=== PATIENT | female | born 1970 | race American Indian/Alaskan Native ===

== ENCOUNTER 2016-08-28 23:03 | Emergency (ER) | payer MEDICAID ==
[2016-08-29 03:46] VITALS: BP 135/84
--- NOTE | 2016-08-29 03:53 | Emergency Department Report ---
Minor Respiratory - HPI Chief Complaint: Upper Respiratory Infection Stated Complaint: LUBA/HEADACHE/COUGH/WHEEZING/ Time Seen by Provider: 08/29/16 03:46 Duration: Today Pain Location: Chest Severity: mild Minor Respiratory: Yes Cough, Yes Shortness of Breath, No Sore Throat, No Fever ED Review of Systems ROS: Stated complaint: LUBA/HEADACHE/COUGH/WHEEZING/ Other details as noted in HPI Constitutional: denies: chills, fever Respiratory: cough, shortness of breath, wheezing Cardiovascular: denies: chest pain, palpitations Gastrointestinal: denies: abdominal pain, nausea ED Past Medical Hx - Past Medical History Previous Medical History?: No - Surgical History Past Surgical History?: Yes Additional Surgical History: D&C - Social History Smoking Status: Current Every Day Smoker Substance Use Type: Alcohol, Non Opiate Pain, Prescribed - Medications Home Medications: Home Medications Medication Instructions Recorded Confirmed Last Taken Type ALBUTEROL Inhaler [Proair] 2 puff IH QID PRN #1 inhalation 01/24/16 Unknown Rx Benzonatate [Tessalon Perles] 100 mg PO Q8HR #30 capsule 01/24/16 Unknown Rx Ciprofloxacin HCl [Ciprofloxacin 500 mg PO Q12H #14 tab 01/24/16 Unknown Rx TAB] Ibuprofen [Motrin 800 MG tab] 800 mg PO Q8HR PRN #20 tablet 01/24/16 Unknown Rx HYDROcodone/APAP 5-325 [[place] 1 - 2 each PO 2XWHS PRN #15 tablet 08/29/16 Unknown Rx 5-325 mg TAB] Minor Respiratory Exam - Exam General: Vital signs noted. No distress. Alert and acting appropriately. HEENT: Yes Moist Mucous Membranes, No Pharyngeal Erythema, No Pharyngeal Exudates, No Rhinorrhea, No Conjuctival Injection, No Frontal Tenderness, No Maxillary Tenderness Neck: Yes Supple, No Adenopathy Lungs: Yes Good Air Exchange, Yes Wheezes, No Ronchi, No Stridor Heart: Yes Regular, No Murmur Abdomen: No Tenderness, No Peritoneal Signs Skin: No Rash, No Edema Neurologic: Alert and oriented, no deficits. Musculoskeletal: Unremarkable. ED Course Vital Signs 08/28/16 08/29/16 08/29/16 23:06 03:45 03:46 Temperature 98.4 F 98.3 F Pulse Rate 102 H 95 H Respiratory 20 16 Rate Blood Pressure 132/94 Blood Pressure 134/94 135/84 [Right] O2 Sat by Pulse 99 97 97 Oximetry - Reevaluation(s) Reevaluation #1: 08/29/16 06:03 Patient demonstrates some mild bronchial sounds on her respiratory examination. She is moving air well however. Her O2 saturations appropriate her heart rate is appropriate. She is afebrile here. I suspect bronchitis. Patient given an inhaler here for her wheezes. I suspect this will help with her cough as well. She is otherwise well here. She does have some pain in the right parascapular region. I suspect this is due to hard coughing. I do not suspect fracture. Safe for home Critical care attestation.: If time is entered above; I have spent that time in minutes in the direct care of this critically ill patient, excluding procedure time. ED Disposition Clinical Impression: Bronchitis Thoracic back sprain Qualifiers: Encounter type: initial encounter Qualified Code(s): S23.9XXA - Sprain of unspecified parts of thorax, initial encounter Disposition: DISCHARGED TO HOME OR SELFCARE Is pt being admited?: No Does the pt Need Aspirin: No Condition: Stable Instructions: Acute Bronchitis (ED) Additional Instructions: Use the albuterol inhaler every 4-6 hours as needed for cough and difficulty in breathing. Take hydrocodone as needed for pains. Prescriptions: HYDROcodone/APAP 5-325 [[place] 5-325 mg TAB] 1 - 2 each PO 2XWHS PRN #15 tablet PRN Reason: Pain Referrals: PRIMARY CARE, [Primary Care Provider] - 3-5 Days Forms: Work/School Release Form(ED) Time of Disposition: 03:51
[2016-08-29] MEDS ORDERED: PROAIR IH ONE (03:54)
== END 2016-08-29 04:25 | disposition home or self-care (01) ==
LOC: ED 23:03
DX: S23.9XXA Sprain of unspecified parts of thorax, initial encounter (principal); J40 Bronchitis, not specified as acute or chronic; F17.200 Nicotine dependence, unspecified, uncomplicated; X58.XXXA Exposure to other specified factors, initial encounter; Y93.9 Activity, unspecified; Y92.9 Unspecified place or not applicable; Y99.9 Unspecified external cause status
CPT/HCPCS: 99282

== ENCOUNTER 2017-01-22 18:21 | Emergency (ER) | payer BC, MEDICAID ==
[2017-01-22 19:53] LABS: Basophils % (Auto) 0.5 % (0.0-1.8); Hematocrit 39.2 % (30.3-42.9); Hemoglobin 13.3 gm/dl (10.1-14.3); Mean Corpuscular HGB Conc 34 % (30-34); Mean Corpuscular Hemoglobin 30 pg (28-32); Mean Corpuscular Volume 87 fl (79-97); Platelet Count 214 K/mm3 (140-440); Red Cell Distribution Width 13.7 % (13.2-15.2); White Blood Count 7.5 K/mm3 (4.5-11.0)
[2017-01-22 20:05] LABS: Anion Gap 19 mmol/L; BUN/Creatinine Ratio 11.25; Blood Urea Nitrogen 9 mg/dL (7-17); Calcium 9.1 mg/dL (8.4-10.2); Carbon Dioxide 25 mmol/L (22-30); Chloride 97.1 mmol/L (98-107); Glucose 93 mg/dL (65-100); Potassium 3.6 mmol/L (3.6-5.0); Sodium 137 mmol/L (137-145)
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
[2017-01-23] MEDS ORDERED: ATIVAN IM PRN (03:31)
[2017-01-23] MEDS ORDERED: HALDOL IM PRN (03:31)
[2017-01-23] MEDS ORDERED: ZOFRAN ODT PO PRN (04:40)
[2017-01-23] MEDS ORDERED: HALDOL IM ONE (04:40)
--- NOTE | 2017-01-23 05:04 | Cat Scan Report ---
FINAL REPORT EXAM: CT HEAD/BRAIN W/O CONTRAST. HISTORY: Hallucinations. TECHNIQUE: Unenhanced axial CT images of the brain were obtained. No prior studies are available for comparison. FINDINGS: There is moderate streak artifact degrading images at the skullbase. The cortical sulci and ventricles are within normal limits for patient's age. Incidental note is made of dense dural calcifications along the entire falx. There is no extra-axial fluid collection, mass, mass effect, midline shift, hydrocephalus, or acute intracranial hemorrhage. There is minimal sinus mucosal thickening along the anterior aspects of the bilateral sphenoid sinuses, and within the adjacent posterior left ethmoid air cells. The remainder of the visualized paranasal sinuses and mastoid air cells are clear. There is no skull fracture or other osseous abnormality. IMPRESSION: 1. No acute intracranial abnormality. 2. Minimal bilateral sphenoid and left posterior ethmoid sinus mucosal thickening.
[2017-01-23 05:39] LABS: Urine Drugs of Abuse Note Disclamer
[2017-01-23 05:53] LABS: Bacteria,Urine 1+ /HPF (Negative); Bilirubin,Urine NEG (Negative); Blood,Urine NEG (Negative); Ketones,Urine NEG (Negative); Leukocyte Esterase,Urine SM (Negative); Mucus,Urine 2+ /HPF; Nitrite,Urine NEG (Negative)
[2017-01-23 05:58] LABS: Lithium 1.3 mmol/L (0.0-1.2)
[2017-01-23 06:02] LABS: Valproate < 2.8 ug/mL (50-100)
[2017-01-23] MEDS ORDERED: NACL 0.9% 1000 ML 2,000 ML IV ONE (06:09)
[2017-01-23] MEDS: THERAGRAN Tab PO SCH (11:00)
[2017-01-23] MEDS: PAXIL PO SCH (11:00)
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
[2017-01-23 12:33] LABS: Urine Drugs of Abuse Note Disclamer
[2017-01-24] MEDS: THERAGRAN Tab PO SCH (11:27)
[2017-01-24] MEDS: PAXIL PO SCH (11:27)
[2017-01-25] MEDS: PAXIL PO SCH (11:10)
[2017-01-25] MEDS: THERAGRAN Tab PO SCH (11:10)
--- NOTE | 2017-01-25 12:23 | Progress Note ---
Subjective - Reason for Consult Consult date: 01/25/17 Reason for consult: Psychiatry Follow-up - Chief Complaint Chief complaint: This is a 46-year-old female presenting to ER with anger, anxiety, and bothersome thoughts. Today patient is calm and cooperative during assessment. She stated that she experience "Demons" attacking her when she does not take her medications. She denies the attacks of demons at this time. She admit to taking her boyfriend's lithium. She stated, "I took the lithium for anxiety." On admission her lithium level was 1.3 with a repeat level at 0.1. She cannot tell me how she got amphetamines in her system. She stated that she feels "a lot " better since she be taking her medication per this admission. She denies SI/HI 's, AVH's, and depression. She denies any side effects from her medications. Mental Status Exam - Vital signs Last Vital Signs Temp 98.8 F 01/24/17 21:52 Pulse 69 01/24/17 21:52 Resp 18 01/24/17 21:52 BP 118/67 01/24/17 21:52 Pulse Ox 96 01/24/17 21:52 - Exam Narrative exam: MSE: Appearance: cooperative, calm Behavior: regular eye contact Speech: regular rate and tone Mood: "better" Affect: congruent to mood Thought Process: linear Thought Content: denies SI/HI's and AVH's Motor Activity: ambulatory Cognition: A/Ox 3 Insight: fair Judgment: fair Assessment and Plan Impression: Historical Dx; Bipolar/Depression. Today patient is calm and cooperative during assessment. Denies any perceptual disturbances. Recommendation/Plan: Evaluate 1013 in 24 hours to determine proper dispo. Continue Zyprexa 10 mg PO HS for psychotic symptoms/mood and Paxil 20 mg PO daily for depression. Discussed possible suicidality/medication induced levi with patient reference Paxil.
[2017-01-26] MEDS: PAXIL PO SCH (10:28)
[2017-01-26] MEDS: THERAGRAN Tab PO SCH (10:28)
--- NOTE | 2017-01-26 11:30 | Progress Note ---
Subjective - Reason for Consult Consult date: 01/26/17 Reason for consult: Psychiatry Follow-up - Chief Complaint Chief complaint: "Will I be leaving today" This is a 46-year-old female presenting to ER with anger, anxiety, and bothersome thoughts. Today patient is calm and cooperative during assessment. She stated that the "demons" attacking her has ceased and look forward to returning home. She also stated that she look forward to returning to work. She stated that she live with her 2 grown sons (Mauri and Basilio). Patient has been pleasant since admission. Per the staff, no behavioral disturbances noted. She denies SI/HI's, AVH"s, and depression symptoms. Mental Status Exam - Vital signs Last Vital Signs Temp 98.9 F 01/26/17 08:10 Pulse 64 01/26/17 08:10 Resp 16 01/26/17 08:10 BP 131/82 01/26/17 08:10 Pulse Ox 99 01/26/17 08:10 - Exam Narrative exam: MSE: Appearance: cooperative, calm Behavior: regular eye contact Speech: regular rate and tone Mood: "okay" Affect: congruent to mood Thought Process: linear Thought Content: denies SI/HI's and AVH's Motor Activity: ambulatory Cognition: A/Ox 3 Insight: fair Judgment: fair Assessment and Plan Impression: Historical Dx; Bipolar/Depression. Today patient is calm and cooperative during assessment. Patient is no threat to self or others. Recommendation/Plan: Rescind 1013. Continue Zyprexa 10 mg PO HS for mood and Paxil 20 mg PO daily for depression. Discussed possible suicidality/medication induced levi with patient reference Paxil. Patient can follow-up with her psychiatrist Dr Kumar.
--- NOTE | 2017-01-26 12:39 | Event Note ---
Date: 01/26/17 The patient is seen and examined. Her hallucinations have resolved. She is not homicidal or suicidal. The patient is alert and oriented 3. She reports she is not taking lithium. She has a GCS of 15, with an NIH score of 0. She will be given a 10 day supply of Zyprexa and Paxil, and instructed to follow up with outpatient psychiatry to have her medications further refill. Her 1013 has been discontinued by psychiatry. Vital Signs 01/22/17 01/23/17 01/23/17 18:43 00:11 04:06 Temperature 98.5 F 98.6 F Pulse Rate 93 H 87 87 Respiratory 18 18 16 Rate Blood Pressure 136/94 155/107 Blood Pressure [Left] Blood Pressure 139/97 [Right] O2 Sat by Pulse 97 100 98 Oximetry 01/23/17 01/23/17 01/23/17 10:00 14:06 16:00 Temperature Pulse Rate 88 77 Respiratory 16 16 16 Rate Blood Pressure Blood Pressure [Left] Blood Pressure 138/78 130/62 [Right] O2 Sat by Pulse 99 99 99 Oximetry 01/23/17 01/24/17 01/24/17 20:23 08:45 18:58 Temperature 98.0 F 98.2 F Pulse Rate 80 78 Respiratory 16 20 20 Rate Blood Pressure Blood Pressure [Left] Blood Pressure 128/60 120/64 [Right] O2 Sat by Pulse 99 100 100 Oximetry 01/24/17 01/25/17 01/26/17 21:52 16:30 01:14 Temperature 98.8 F 98.7 F 98.9 F Pulse Rate 69 72 70 Respiratory 18 20 16 Rate Blood Pressure Blood Pressure [Left] Blood Pressure 118/67 122/86 110/73 [Right] O2 Sat by Pulse 96 100 93 Oximetry 01/26/17 08:10 Temperature 98.9 F Pulse Rate 64 Respiratory 16 Rate Blood Pressure Blood Pressure 131/82 [Left] Blood Pressure [Right] O2 Sat by Pulse 99 Oximetry Vital Signs 01/22/17 01/23/17 01/23/17 18:43 00:11 04:06 Temperature 98.5 F 98.6 F Pulse Rate 93 H 87 87 Respiratory 18 18 16 Rate Blood Pressure 136/94 155/107 Blood Pressure [Left] Blood Pressure 139/97 [Right] O2 Sat by Pulse 97 100 98 Oximetry 0701/23/17 01/23/17 10:00 14:06 16:00 Temperature Pulse Rate 88 77 Respiratory 16 16 16 Rate Blood Pressure Blood Pressure [Left] Blood Pressure 138/78 130/62 [Right] O2 Sat by Pulse 99 99 99 Oximetry 01/23/17 01/24/17 01/24/17 20:23 08:45 18:58 Temperature 98.0 F 98.2 F Pulse Rate 80 78 Respiratory 16 20 20 Rate Blood Pressure Blood Pressure [Left] Blood Pressure 128/60 120/64 [Right] O2 Sat by Pulse 99 100 100 Oximetry 01/24/17 01/25/17 01/26/17 21:52 16:30 01:14 Temperature 98.8 F 98.7 F 98.9 F Pulse Rate 69 72 70 Respiratory 18 20 16 Rate Blood Pressure Blood Pressure [Left] Blood Pressure 118/67 122/86 110/73 [Right] O2 Sat by Pulse 96 100 93 Oximetry 01/26/17 08:10 Temperature 98.9 F Pulse Rate 64 Respiratory 16 Rate Blood Pressure Blood Pressure 131/82 [Left] Blood Pressure [Right] O2 Sat by Pulse 99 Oximetry Lab Results 01/22/17 01/22/17 01/22/17 Range/Units 19:30 19:30 19:30 WBC (4.5-11.0) K/mm3 RBC (3.65-5.03) M/mm3 Hgb (10.1-14.3) gm/dl Hct (30.3-42.9) % MCV (79-97) fl MCH (28-32) pg MCHC (30-34) % RDW (13.2-15.2) % Plt Count (140-440) K/mm3 Lymph % (Auto) (13.4-35.0) % [place] % (Auto) (0.0-7.3) % Eos % (Auto) (0.0-4.3) % Baso % (Auto) (0.0-1.8) % Lymph # (1.2-5.4) K/mm3 [place] # (0.0-0.8) K/mm3 Eos # (0.0-0.4) K/mm3 Baso # (0.0-0.1) K/mm3 Seg Neutrophils % (40.0-70.0) % Seg Neutrophils # (1.8-7.7) K/mm3 Sodium 137 (137-145) mmol/L Potassium 3.6 (3.6-5.0) mmol/L Chloride 97.1 L (98-107) mmol/L Carbon Dioxide 25 (22-30) mmol/L Anion Gap 19 mmol/L BUN 9 (7-17) mg/dL Creatinine 0.8 (0.7-1.2) mg/dL Estimated GFR > 60 ml/min BUN/Creatinine Ratio 11.25 % Glucose 93 (65-100) mg/dL Calcium 9.1 (8.4-10.2) mg/dL Total Creatine Kinase (30-135) units/L TSH (0.270-4.200) mlU/mL Free T4 (0.76-1.46) ng/dL HCG, Qual Negative (Negative) Urine Color (Yellow) Urine Turbidity (Clear) Urine pH (5.0-7.0) Ur Specific [place] (1.003-1.030) Urine Protein (Negative) mg/dL Urine Glucose (UA) (Negative) mg/dL Urine Ketones (Negative) mg/dL Urine Blood (Negative) Urine Nitrite (Negative) Urine Bilirubin (Negative) Urine Urobilinogen (<2.0) mg/dL Ur Leukocyte Esterase (Negative) Urine WBC (Auto) (0.0-6.0) /HPF Urine RBC (Auto) (0.0-6.0) /HPF U Epithel Cells (Auto) (0-13.0) /HPF Urine Bacteria (Auto) (Negative) /HPF Urine Mucus /HPF Salicylates (2.8-20.0) mg/dL Urine Opiates Screen Urine Methadone Screen Acetaminophen (10.0-30.0) ug/mL Ur Barbiturates Screen Valproic Acid (50-100) ug/mL Ur Phencyclidine Scrn Ur Amphetamines Screen U Benzodiazepines Scrn [place] (0.0-1.2) mmol/L Urine Cocaine Screen U Marijuana (THC) Screen Drugs of Abuse Note Plasma/Serum Alcohol 0.10 H (0-0.07) gm% 01/22/17 01/23/17 01/23/17 Range/Units 19:30 01:35 01:35 WBC 7.5 (4.5-11.0) K/mm3 RBC 4.50 (3.65-5.03) M/mm3 Hgb 13.3 (10.1-14.3) gm/dl Hct 39.2 (30.3-42.9) % MCV 87 (79-97) fl MCH 30 (28-32) pg MCHC 34 (30-34) % RDW 13.7 (13.2-15.2) % Plt Count 214 (140-440) K/mm3 Lymph % (Auto) 33.1 (13.4-35.0) % [place] % (Auto) 5.3 (0.0-7.3) % Eos % (Auto) 0.0 (0.0-4.3) % Baso % (Auto) 0.5 (0.0-1.8) % Lymph # 2.5 (1.2-5.4) K/mm3 [place] # 0.4 (0.0-0.8) K/mm3 Eos # 0.0 (0.0-0.4) K/mm3 Baso # 0.0 (0.0-0.1) K/mm3 Seg Neutrophils % 61.1 (40.0-70.0) % Seg Neutrophils # 4.6 (1.8-7.7) K/mm3 Sodium (137-145) mmol/L Potassium (3.6-5.0) mmol/L Chloride (98-107) mmol/L Carbon Dioxide (22-30) mmol/L Anion Gap mmol/L BUN (7-17) mg/dL Creatinine (0.7-1.2) mg/dL Estimated GFR ml/min BUN/Creatinine Ratio % Glucose (65-100) mg/dL Calcium (8.4-10.2) mg/dL Total Creatine Kinase 790 H (30-135) units/L TSH (0.270-4.200) mlU/mL Free T4 (0.76-1.46) ng/dL HCG, Qual (Negative) Urine Color (Yellow) Urine Turbidity (Clear) Urine pH (5.0-7.0) Ur Specific [place] (1.003-1.030) Urine Protein (Negative) mg/dL Urine Glucose (UA) (Negative) mg/dL Urine Ketones (Negative) mg/dL Urine Blood (Negative) Urine Nitrite (Negative) Urine Bilirubin (Negative) Urine Urobilinogen (<2.0) mg/dL Ur Leukocyte Esterase (Negative) Urine WBC (Auto) (0.0-6.0) /HPF Urine RBC (Auto) (0.0-6.0) /HPF U Epithel Cells (Auto) (0-13.0) /HPF Urine Bacteria (Auto) (Negative) /HPF Urine Mucus /HPF Salicylates < 0.3 L (2.8-20.0) mg/dL Urine Opiates Screen Urine Methadone Screen Acetaminophen (10.0-30.0) ug/mL Ur Barbiturates Screen Valproic Acid (50-100) ug/mL Ur Phencyclidine Scrn Ur Amphetamines Screen U Benzodiazepines Scrn [place] (0.0-1.2) mmol/L Urine Cocaine Screen U Marijuana (THC) Screen Drugs of Abuse Note Plasma/Serum Alcohol (0-0.07) gm% 01/23/17 01/23/17 01/23/17 Range/Units 01:35 01:35 01:35 WBC (4.5-11.0) K/mm3 RBC (3.65-5.03) M/mm3 Hgb (10.1-14.3) gm/dl Hct (30.3-42.9) % MCV (79-97) fl MCH (28-32) pg MCHC (30-34) % RDW (13.2-15.2) % Plt Count (140-440) K/mm3 Lymph % (Auto) (13.4-35.0) % [place] % (Auto) (0.0-7.3) % Eos % (Auto) (0.0-4.3) % Baso % (Auto) (0.0-1.8) % Lymph # (1.2-5.4) K/mm3 [place] # (0.0-0.8) K/mm3 Eos # (0.0-0.4) K/mm3 Baso # (0.0-0.1) K/mm3 Seg Neutrophils % (40.0-70.0) % Seg Neutrophils # (1.8-7.7) K/mm3 Sodium (137-145) mmol/L Potassium (3.6-5.0) mmol/L Chloride (98-107) mmol/L Carbon Dioxide (22-30) mmol/L Anion Gap mmol/L BUN (7-17) mg/dL Creatinine (0.7-1.2) mg/dL Estimated GFR ml/min BUN/Creatinine Ratio % Glucose (65-100) mg/dL Calcium (8.4-10.2) mg/dL Total Creatine Kinase (30-135) units/L TSH 1.070 (0.270-4.200) mlU/mL Free T4 1.23 (0.76-1.46) ng/dL HCG, Qual (Negative) Urine Color (Yellow) Urine Turbidity (Clear) Urine pH (5.0-7.0) Ur Specific [place] (1.003-1.030) Urine Protein (Negative) mg/dL Urine Glucose (UA) (Negative) mg/dL Urine Ketones (Negative) mg/dL Urine Blood (Negative) Urine Nitrite (Negative) Urine Bilirubin (Negative) Urine Urobilinogen (<2.0) mg/dL Ur Leukocyte Esterase (Negative) Urine WBC (Auto) (0.0-6.0) /HPF Urine RBC (Auto) (0.0-6.0) /HPF U Epithel Cells (Auto) (0-13.0) /HPF Urine Bacteria (Auto) (Negative) /HPF Urine Mucus /HPF Salicylates (2.8-20.0) mg/dL Urine Opiates Screen Urine Methadone Screen Acetaminophen < 15.0 (10.0-30.0) ug/mL Ur Barbiturates Screen Valproic Acid (50-100) ug/mL Ur Phencyclidine Scrn Ur Amphetamines Screen U Benzodiazepines Scrn [place] (0.0-1.2) mmol/L Urine Cocaine Screen U Marijuana (THC) Screen Drugs of Abuse Note Plasma/Serum Alcohol (0-0.07) gm% 01/23/17 01/23/17 01/23/17 Range/Units 05:27 05:29 05:29 WBC (4.5-11.0) K/mm3 RBC (3.65-5.03) M/mm3 Hgb (10.1-14.3) gm/dl Hct (30.3-42.9) % MCV (79-97) fl MCH (28-32) pg MCHC (30-34) % RDW (13.2-15.2) % Plt Count (140-440) K/mm3 Lymph % (Auto) (13.4-35.0) % [place] % (Auto) (0.0-7.3) % Eos % (Auto) (0.0-4.3) % Baso % (Auto) (0.0-1.8) % Lymph # (1.2-5.4) K/mm3 [place] # (0.0-0.8) K/mm3 Eos # (0.0-0.4) K/mm3 Baso # (0.0-0.1) K/mm3 Seg Neutrophils % (40.0-70.0) % Seg Neutrophils # (1.8-7.7) K/mm3 Sodium (137-145) mmol/L Potassium (3.6-5.0) mmol/L Chloride (98-107) mmol/L Carbon Dioxide (22-30) mmol/L Anion Gap mmol/L BUN (7-17) mg/dL Creatinine (0.7-1.2) mg/dL Estimated GFR ml/min BUN/Creatinine Ratio % Glucose (65-100) mg/dL Calcium (8.4-10.2) mg/dL Total Creatine Kinase (30-135) units/L TSH (0.270-4.200) mlU/mL Free T4 (0.76-1.46) ng/dL HCG, Qual (Negative) Urine Color Yellow (Yellow) Urine Turbidity Clear (Clear) Urine pH 7.0 (5.0-7.0) Ur Specific [place] 1.025 (1.003-1.030) Urine Protein 30 mg/dl (Negative) mg/dL Urine Glucose (UA) Neg (Negative) mg/dL Urine Ketones Neg (Negative) mg/dL Urine Blood Neg (Negative) Urine Nitrite Neg (Negative) Urine Bilirubin Neg (Negative) Urine Urobilinogen 4.0 (<2.0) mg/dL Ur Leukocyte Esterase Sm (Negative) Urine WBC (Auto) 20.0 H (0.0-6.0) /HPF Urine RBC (Auto) 13.0 (0.0-6.0) /HPF U Epithel Cells (Auto) 15.0 H (0-13.0) /HPF Urine Bacteria (Auto) 1+ (Negative) /HPF Urine Mucus 2+ /HPF Salicylates (2.8-20.0) mg/dL Urine Opiates Screen Presumptive negative Urine Methadone Screen Presumptive negative Acetaminophen (10.0-30.0) ug/mL Ur Barbiturates Screen Presumptive positive Valproic Acid < 2.8 L (50-100) ug/mL Ur Phencyclidine Scrn Presumptive negative Ur Amphetamines Screen Presumptive positive U Benzodiazepines Scrn Presumptive negative [place] 1.3 H (0.0-1.2) mmol/L Urine Cocaine Screen Presumptive negative U Marijuana (THC) Screen Presumptive negative Drugs of Abuse Note Disclamer Plasma/Serum Alcohol (0-0.07) gm% 01/23/17 01/23/17 01/23/17 Range/Units 09:05 12:06 12:29 WBC (4.5-11.0) K/mm3 RBC (3.65-5.03) M/mm3 Hgb (10.1-14.3) gm/dl Hct (30.3-42.9) % MCV (79-97) fl MCH (28-32) pg MCHC (30-34) % RDW (13.2-15.2) % Plt Count (140-440) K/mm3 Lymph % (Auto) (13.4-35.0) % [place] % (Auto) (0.0-7.3) % Eos % (Auto) (0.0-4.3) % Baso % (Auto) (0.0-1.8) % Lymph # (1.2-5.4) K/mm3 [place] # (0.0-0.8) K/mm3 Eos # (0.0-0.4) K/mm3 Baso # (0.0-0.1) K/mm3 Seg Neutrophils % (40.0-70.0) % Seg Neutrophils # (1.8-7.7) K/mm3 Sodium (137-145) mmol/L Potassium (3.6-5.0) mmol/L Chloride (98-107) mmol/L Carbon Dioxide (22-30) mmol/L Anion Gap mmol/L BUN (7-17) mg/dL Creatinine (0.7-1.2) mg/dL Estimated GFR ml/min BUN/Creatinine Ratio % Glucose (65-100) mg/dL Calcium (8.4-10.2) mg/dL Total Creatine Kinase (30-135) units/L TSH (0.270-4.200) mlU/mL Free T4 (0.76-1.46) ng/dL HCG, Qual (Negative) Urine Color (Yellow) Urine Turbidity (Clear) Urine pH (5.0-7.0) Ur Specific [place] (1.003-1.030) Urine Protein (Negative) mg/dL Urine Glucose (UA) (Negative) mg/dL Urine Ketones (Negative) mg/dL Urine Blood (Negative) Urine Nitrite (Negative) Urine Bilirubin (Negative) Urine Urobilinogen (<2.0) mg/dL Ur Leukocyte Esterase (Negative) Urine WBC (Auto) (0.0-6.0) /HPF Urine RBC (Auto) (0.0-6.0) /HPF U Epithel Cells (Auto) (0-13.0) /HPF Urine Bacteria (Auto) (Negative) /HPF Urine Mucus /HPF Salicylates (2.8-20.0) mg/dL Urine Opiates Screen Presumptive negative Urine Methadone Screen Presumptive negative Acetaminophen (10.0-30.0) ug/mL Ur Barbiturates Screen Presumptive negative Valproic Acid (50-100) ug/mL Ur Phencyclidine Scrn Presumptive negative Ur Amphetamines Screen Presumptive positive U Benzodiazepines Scrn Presumptive negative [place] 0.1 0.1 (0.0-1.2) mmol/L Urine Cocaine Screen Presumptive negative U Marijuana (THC) Screen Presumptive negative Drugs of Abuse Note Disclamer Plasma/Serum Alcohol (0-0.07) gm%
[2017-01-26 13:04] VITALS: BP 140/77
== END 2017-01-26 13:06 | disposition home or self-care (01) ==
LOC: ED 18:21 → EEVIPCON 18:21 → ED 01-26 13:06
DX: F39 Unspecified mood [affective] disorder (principal); K21.9 Gastro-esophageal reflux disease without esophagitis; F31.9 Bipolar disorder, unspecified; F17.200 Nicotine dependence, unspecified, uncomplicated
CPT/HCPCS: 36415; 80048; 80164; 80178; 80307; 81001; 82550; 84439; 84443; 84703; 85025; 96372; 99285; G0480; J1630; 80320

== ENCOUNTER 2017-01-31 12:30 | Emergency (ER) | payer BC ==
--- NOTE | 2017-01-31 12:57 | Emergency Department Report ---
ED Medical Clearance HPI - General Chief complaint: Nausea/Vomiting/Diarrhea Stated complaint: here for work note. she missed work yest dt eating [employer] that she kept in lunch box for over 24 h. went to pcp but she owes them money so they would not see. here only for work note Time Seen by Provider: 01/31/17 12:46 Source: patient Mode of arrival: Ambulatory Limitations: No Limitations - History of Present Illness Alledged Intoxication: No Compliant with Home Medications: Yes Traumatic Symptoms: denies traumatic injury Associated Symptoms: denies: chest pain, shortness of breath, palpitations, diaphoresis, denies other symptoms, confusion Treatments Prior to Arrival: none Home medications: Home Medications Medication Instructions Recorded Confirmed Last Taken Multivitamin Tab [Multiple Vitamin 1 each PO QDAY 01/23/17 01/23/17 Unknown TAB (Theragran)] PARoxetine [Paxil] 20 mg PO DAILY 01/23/17 01/23/17 Unknown Previous Rx's Medication Instructions Recorded Last Taken Type OLANzapine [ZyPREXA] 10 mg PO QHS #10 tablet 01/26/17 Unknown Rx PARoxetine [Paxil] 20 mg PO DAILY #10 tablet 01/26/17 Unknown Rx Olanzapine [OLANZapine] 10 mg PO DAILY #30 tablet 01/31/17 Unknown Rx Allergies/Adverse reactions: Allergies Allergy/AdvReac Type Severity Reaction Status Date / Time No Known Allergies Allergy Verified 01/31/17 12:40 ED Review of Systems ROS: Stated complaint: NAUSEA ABD VOMITING Other details as noted in HPI Comment: All other systems reviewed and negative Constitutional: no symptoms reported, see HPI Eyes: as per HPI ENT: as per HPI Respiratory: no symptoms reported Cardiovascular: as per HPI Endocrine: no symptoms reported Gastrointestinal: as per HPI Genitourinary: as per HPI Musculoskeletal: as per HPI Skin: as per HPI Neurological: as per HPI Psychiatric: as per HPI Hematological/Lymphatic: as per HPI ED Past Medical Hx - Past Medical History Hx GERD: Yes Hx Psychiatric Treatment: Yes (anxiety / depression / bipolar / paranoia) - Surgical History Past Surgical History?: Yes Additional Surgical History: D&C - Family History Family history: no significant - Social History Smoking Status: Current Every Day Smoker Substance Use Type: None - Medications Home Medications: Home Medications Medication Instructions Recorded Confirmed Last Taken Type Multivitamin Tab [Multiple Vitamin 1 each PO QDAY 01/23/17 01/23/17 Unknown History TAB (Theragran)] PARoxetine [Paxil] 20 mg PO DAILY 01/23/17 01/23/17 Unknown History OLANzapine [ZyPREXA] 10 mg PO QHS #10 tablet 01/26/17 Unknown Rx PARoxetine [Paxil] 20 mg PO DAILY #10 tablet 01/26/17 Unknown Rx Olanzapine [OLANZapine] 10 mg PO DAILY #30 tablet 01/31/17 Unknown Rx ED Physical Exam - General Limitations: No Limitations General appearance: alert - Head Head exam: Present: atraumatic - Eye Eye exam: Present: normal appearance - ENT ENT exam: Present: normal orophraynx, mucous membranes moist - Neck Neck exam: Present: normal inspection. Absent: tenderness, meningismus - Respiratory Respiratory exam: Present: normal lung sounds bilaterally. Absent: respiratory distress, wheezes - Cardiovascular Cardiovascular Exam: Present: regular rate, normal rhythm - GI/Abdominal GI/Abdominal exam: Present: soft, normal bowel sounds. Absent: distended, tenderness, guarding, rebound, rigid, diminished bowel sounds, hyperactive bowel sounds, hypoactive bowel sounds, organomegaly, mass, bruit, pulsatile mass , hernia - External exam: Present: normal external exam - Extremities Exam Extremities exam: Present: normal inspection, full ROM. Absent: tenderness - Back Exam Back exam: Present: normal inspection, full ROM. Absent: tenderness, CVA tenderness (R), CVA tenderness (L) - Neurological Exam Neurological exam: Present: alert, oriented X3 - Psychiatric Psychiatric exam: Present: normal affect, normal mood - Skin Skin exam: Present: warm, dry, intact ED Course Vital Signs 01/31/17 12:36 Temperature 99.0 F Pulse Rate 86 Respiratory 17 Rate Blood Pressure 120/82 O2 Sat by Pulse 99 Oximetry - Reevaluation(s) Reevaluation #1: 01/31/17 13:03 to er bc she missed work yest w n/v from eating old [employer] she has no s/s today. she is not vomiting a/o vss no distress out of her zyprexa as well. pcp wont see bc she owes him money Reevaluation #2: 01/31/17 13:05 when rn went to dc pt she stated she forgot to tell me she is nauseated zofran odt dc home w med refill and work note pcp follow up ED Medical Decision Making - Medical Decision Making state her for work note and med refill - Differential Diagnosis illness v work note ED Disposition Clinical Impression: Medicine refill, Mood disorder, Wellness examination, Nausea Disposition: DC-01 TO HOME OR SELFCARE Is pt being admited?: No Does the pt Need Aspirin: No Condition: Stable Instructions: Bipolar Disorder (ED) Additional Instructions: see pcp for meds Prescriptions: Olanzapine [OLANZapine] 10 mg PO DAILY #30 tablet Referrals: ZACK DOMINGUEZ MD [Staff Physician] - 3-5 Days Forms: Work/School Release Form(ED) Time of Disposition: 12:57
[2017-01-31] MEDS ORDERED: ZOFRAN ODT PO ONE (13:05)
[2017-01-31 13:59] VITALS: BP 121/75
== END 2017-01-31 13:15 | disposition home or self-care (01) ==
LOC: ED 12:30
DX: R11.0 Nausea (principal); F39 Unspecified mood [affective] disorder; F31.9 Bipolar disorder, unspecified; F41.9 Anxiety disorder, unspecified; F17.200 Nicotine dependence, unspecified, uncomplicated
CPT/HCPCS: 99282; Q0162

== ENCOUNTER 2017-07-09 13:48 | Emergency (ER) | payer BC ==
[2017-07-09 15:19] LABS: Hematocrit 49.6 % (30.3-42.9); Hemoglobin 16.4 gm/dl (10.1-14.3); Mean Corpuscular HGB Conc 33 % (30-34); Mean Corpuscular Hemoglobin 29 pg (28-32); Mean Corpuscular Volume 88 fl (79-97); Platelet Count 213 K/mm3 (140-440); Red Blood Count 5.63 M/mm3 (3.65-5.03); Red Cell Distribution Width 14.9 % (13.2-15.2)
[2017-07-09 15:40] LABS: BUN/Creatinine Ratio 10; Blood Urea Nitrogen 10 mg/dL (7-17); Hemolysis Index 102
[2017-07-09 16:39] LABS: HCG Qualitative,Urine Negative (Negative)
[2017-07-09 16:42] LABS: Bilirubin,Urine SM (Negative); Blood,Urine SM (Negative); Color,Urine Amber (Yellow); Mucus,Urine 3+ /HPF; Nitrite,Urine NEG (Negative); Renal Epithelial Cells,Urine 1 /LPF
[2017-07-09 16:45] LABS: Ictotest,Urine Negative (Negative)
--- NOTE | 2017-07-09 18:06 | XRay Report ---
FINAL REPORT PROCEDURE: Chest. TECHNIQUE: PA and lateral views. HISTORY: Cough, low oxygen saturation. COMPARISON: No prior studies are available for comparison. FINDINGS: The heart and mediastinum appear normal. The lungs are clear and well expanded. There are no pleural effusions. The soft tissues and regional skeleton are unremarkable. IMPRESSION: No significant abnormality.
[2017-07-10 06:52] VITALS: BP 124/79
[2017-07-10] MEDS ORDERED: DUONEB *Not for PRN Use IH ONE (12:42)
[2017-07-10] MEDS ORDERED: DUONEB *Not for PRN Use IH SCH (14:00)
--- NOTE | 2017-07-10 14:22 | Emergency Department Report ---
- General Chief Complaint: Upper Respiratory Infection Stated Complaint: COUGH/SOB Time Seen by Provider: 07/10/17 10:48 Source: patient Mode of arrival: Ambulatory Limitations: No Limitations - History of Present Illness Initial Comments: Patient is a 46-year-old Female with a past medical history of heavy smoking is presenting with upper respiratory symptoms for approximately 1 month. Patient states she has had a cough shortness of breath is mild body aches decreased appetite for approximately a month. Patient denies fever. Patient has not smoked in the last 2 days secondary to increased cough. Patient denies sore throat. MD Complaint: cough Severity scale (0 -10): 0 Improves With: nothing Worsens With: nothing Associated Symptoms: myalgias, headache, rhinorrhea, nasal congestion, cough, shortness of breath. denies: fever, chills, diaphoresis, sore throat, chest pain, abdominal pain, nausea, vomiting, diarrhea, rash, confusion - Related Data Home Medications Medication Instructions Recorded Confirmed Last Taken Multivitamin Tab [Multiple Vitamin 1 each PO QDAY 01/23/17 01/23/17 Unknown TAB (Theragran)] PARoxetine [Paxil] 20 mg PO DAILY 01/23/17 01/23/17 Unknown Previous Rx's Medication Instructions Recorded Last Taken Type OLANzapine [ZyPREXA] 10 mg PO QHS #10 tablet 01/26/17 Unknown Rx PARoxetine [Paxil] 20 mg PO DAILY #10 tablet 01/26/17 Unknown Rx Olanzapine [OLANZapine] 10 mg PO DAILY #30 tablet 01/31/17 Unknown Rx ALBUTEROL Inhaler [ProAir HFA 2 puff IH QID PRN #1 inhalation 07/10/17 Unknown Rx Inhaler] ALBUTEROL NEB's [Proventil] 2.5 mg IH TID PRN #20 neb 07/10/17 Unknown Rx Benzonatate [Tessalon Perle] 100 mg PO TID #12 capsule 07/10/17 Unknown Rx Levofloxacin [Levaquin TAB] 500 mg PO QDAY #10 tablet 07/10/17 Unknown Rx predniSONE [Deltasone] 20 mg PO QDAY #5 tab 07/10/17 Unknown Rx Allergies Allergy/AdvReac Type Severity Reaction Status Date / Time No Known Allergies Allergy Verified 01/31/17 12:40 ED Review of Systems ROS: Stated complaint: COUGH/SOB Other details as noted in HPI Comment: All other systems reviewed and negative ED Past Medical Hx - Past Medical History Hx GERD: Yes Hx Psychiatric Treatment: Yes (anxiety / depression / bipolar / paranoia) - Surgical History Additional Surgical History: D&C - Social History Smoking Status: Current Every Day Smoker Substance Use Type: None - Medications Home Medications: Home Medications Medication Instructions Recorded Confirmed Last Taken Type Multivitamin Tab [Multiple Vitamin 1 each PO QDAY 01/23/17 01/23/17 Unknown History TAB (Theragran)] PARoxetine [Paxil] 20 mg PO DAILY 01/23/17 01/23/17 Unknown History OLANzapine [ZyPREXA] 10 mg PO QHS #10 tablet 01/26/17 Unknown Rx PARoxetine [Paxil] 20 mg PO DAILY #10 tablet 01/26/17 Unknown Rx Olanzapine [OLANZapine] 10 mg PO DAILY #30 tablet 01/31/17 Unknown Rx ALBUTEROL Inhaler [ProAir HFA 2 puff IH QID PRN #1 inhalation 07/10/17 Unknown Rx Inhaler] ALBUTEROL NEB's [Proventil] 2.5 mg IH TID PRN #20 neb 07/10/17 Unknown Rx Benzonatate [Tessalon Perle] 100 mg PO TID #12 capsule 07/10/17 Unknown Rx Levofloxacin [Levaquin TAB] 500 mg PO QDAY #10 tablet 07/10/17 Unknown Rx predniSONE [Deltasone] 20 mg PO QDAY #5 tab 07/10/17 Unknown Rx ED Physical Exam - General Limitations: No Limitations General appearance: alert, in no apparent distress - Head Head exam: Present: atraumatic, normocephalic - Eye Eye exam: Present: normal appearance - ENT ENT exam: Present: mucous membranes moist - Neck Neck exam: Present: normal inspection - Respiratory Respiratory exam: Present: wheezes, rales, rhonchi. Absent: respiratory distress - Cardiovascular Cardiovascular Exam: Present: regular rate, normal rhythm. Absent: systolic murmur, diastolic murmur, rubs, gallop - GI/Abdominal GI/Abdominal exam: Present: soft, normal bowel sounds. Absent: distended, tenderness, guarding, rebound - Extremities Exam Extremities exam: Present: normal inspection - Back Exam Back exam: Present: normal inspection - Neurological Exam Neurological exam: Present: alert, oriented X3 - Psychiatric Psychiatric exam: Present: normal affect, normal mood - Skin Skin exam: Present: warm, dry, intact, normal color. Absent: rash ED Course Vital Signs 07/09/17 07/10/17 07/10/17 14:50 03:07 05:28 Temperature 98.3 F 98.3 F Pulse Rate 114 H 96 H 84 Pulse Rate [ Anterior Bilateral Throughout] Respiratory 20 18 10 L Rate Respiratory Rate [Anterior Bilateral Throughout] Blood Pressure 124/89 137/94 Blood Pressure [Left] O2 Sat by Pulse 94 Oximetry 07/10/17 07/10/17 07/10/17 05:30 05:51 06:00 Temperature 99 F Pulse Rate 84 81 90 Pulse Rate [ Anterior Bilateral Throughout] Respiratory 25 H 26 H 27 H Rate Respiratory Rate [Anterior Bilateral Throughout] Blood Pressure 125/88 124/79 Blood Pressure 125/88 [Left] O2 Sat by Pulse 93 95 90 Oximetry 07/10/17 07/10/17 12:53 13:08 Temperature Pulse Rate Pulse Rate [ 77 82 Anterior Bilateral Throughout] Respiratory Rate Respiratory 20 20 Rate [Anterior Bilateral Throughout] Blood Pressure Blood Pressure [Left] O2 Sat by Pulse Oximetry ED Medical Decision Making - Lab Data Result diagrams: 07/09/17 15:06 07/09/17 15:06 - Medical Decision Making Patient is flu negative chest x-ray was also interpreted as being negative for acute process. Patient received a neb treatment wheezing did improve. The patient's O2 sat was 92% on room air and is approximately 91% after neb treatment. Patient does state she feels better. Patient has a history of heavy smoking and may have a slightly lower O2 sat at baseline. Patient states that this time she would like to go home and try to take medications at home to try to get better. We'll place the patient on antibiotics because duration of her symptoms as well as steroids and albuterol. Patient states she has a family member who has nebulizer machine nebulizer machine medications will be given as well. Patient will be treated with Levaquin for her symptoms patient does have a urinary tract infection as well and this will cover for upper respiratory infection as well as UTI. Critical care attestation.: If time is entered above; I have spent that time in minutes in the direct care of this critically ill patient, excluding procedure time. ED Disposition Clinical Impression: Acute bronchitis Qualifiers: Bronchitis organism: unspecified organism Qualified Code(s): J20.9 - Acute bronchitis, unspecified UTI (urinary tract infection) Qualifiers: Urinary tract infection type: acute cystitis Hematuria presence: without hematuria Qualified Code(s): N30.00 - Acute cystitis without hematuria Disposition: TO HOME OR SELFCARE Is pt being admited?: No Does the pt Need Aspirin: No Condition: Fair Instructions: Acute Bronchitis (ED), Urinary Tract Infection in Women (ED) Prescriptions: ALBUTEROL Inhaler [ProAir HFA Inhaler] 2 puff IH QID PRN #1 inhalation PRN Reason: Shortness Of Breath ALBUTEROL NEB's [Proventil] 2.5 mg IH TID PRN #20 neb PRN Reason: Wheezing Benzonatate [Tessalon Perle] 100 mg PO TID #12 capsule Levofloxacin [Levaquin TAB] 500 mg PO QDAY #10 tablet predniSONE [Deltasone] 20 mg PO QDAY #5 tab Referrals: BAR SAUCEDO MD [Staff Physician] - 3-5 Days
== END 2017-07-10 15:36 | disposition home or self-care (01) ==
LOC: ED 13:48
DX: N39.0 Urinary tract infection, site not specified (principal); J20.9 Acute bronchitis, unspecified; K21.9 Gastro-esophageal reflux disease without esophagitis; F17.200 Nicotine dependence, unspecified, uncomplicated
CPT/HCPCS: 36415; 71046; 80048; 81001; 81025; 85027; 87400; 94640; 96374; 99284; J2930

== ENCOUNTER 2017-10-06 14:41 | Emergency (ER) | payer BC ==
[2017-10-06 15:21] LABS: HCG Qualitative,Urine Negative (Negative)
[2017-10-06 15:28] LABS: Bilirubin,Urine NEG (Negative); Blood,Urine SM (Negative); Color,Urine Amber (Yellow); Mucus,Urine 1+ /HPF; Urobilinogen,Urine < 2.0 mg/dL (<2.0)
[2017-10-06] MEDS ORDERED: TORADOL IV ONE (15:34)
--- NOTE | 2017-10-06 15:35 | Emergency Department Report ---
Blank Doc - Documentation Documentation: Patient is a 47-year-old [place] female who is present with right lower quadrant pain for the past several days. Patient denies dysuria or urinary frequency vaginal bleeding vaginal discharge nausea vomiting or diarrhea. Patient on brief physical exam does have some rebound tenderness in the right lower quadrant. Patient without a CT scan to rule out appendicitis
[2017-10-06 16:44] LABS: Basophils % (Auto) 0.4 % (0.0-1.8); Eosinophils # (Auto) 0.1 K/mm3 (0.0-0.4); Eosinophils % (Auto) 1.7 % (0.0-4.3); Hematocrit 42.5 % (30.3-42.9); Lymphocytes # (Auto) 2.3 K/mm3 (1.2-5.4); Mean Corpuscular HGB Conc 33 % (30-34); Mean Corpuscular Hemoglobin 28 pg (28-32); Mean Corpuscular Volume 86 fl (79-97); Monocytes # (Auto) 0.5 K/mm3 (0.0-0.8); Monocytes % (Auto) 8.4 % (0.0-7.3); Platelet Count 263 K/mm3 (140-440); Red Blood Count 4.95 M/mm3 (3.65-5.03)
[2017-10-06 17:04] LABS: Alanine Aminotransferase 20 units/L (7-56); Albumin 4.4 g/dL (3.9-5); BUN/Creatinine Ratio 13; Blood Urea Nitrogen 9 mg/dL (7-17); Calcium 9.2 mg/dL (8.4-10.2); Hemolysis Index 9
[2017-10-06] MEDS ORDERED: NACL 0.9% 1000 ML 1,000 ML ONE (17:43)
--- NOTE | 2017-10-06 17:56 | Emergency Department Report ---
ED Abdominal Pain HPI - General Chief Complaint: Abdominal Pain Stated Complaint: ABDOMINAL PAIN Time Seen by Provider: 10/06/17 15:18 Source: patient Mode of arrival: Ambulatory Limitations: No Limitations - History of Present Illness Initial Comments: Patient is a 47-year-old [place]ian female who is present with right lower pelvic pain for the past several days. She describes pain as throbbing, intermittent throughout the day, she rates it about 5 or 6 out of 10. Patient denies fever, dysuria or urinary frequency vaginal bleeding, vaginal discharge, nausea vomiting or diarrhea. She reports no other problems Severity scale (0 -10): 8 - Related Data Home Medications Medication Instructions Recorded Confirmed Last Taken Multivitamin Tab [Multiple Vitamin 1 each PO QDAY 01/23/17 01/23/17 Unknown TAB (Theragran)] PARoxetine [Paxil] 20 mg PO DAILY 01/23/17 01/23/17 Unknown Previous Rx's Medication Instructions Recorded Last Taken Type OLANzapine [ZyPREXA] 10 mg PO QHS #10 tablet 01/26/17 Unknown Rx PARoxetine [Paxil] 20 mg PO DAILY #10 tablet 01/26/17 Unknown Rx Olanzapine [OLANZapine] 10 mg PO DAILY #30 tablet 01/31/17 Unknown Rx ALBUTEROL Inhaler [ProAir HFA 2 puff IH QID PRN #1 inhalation 07/10/17 Unknown Rx Inhaler] ALBUTEROL NEB's [Proventil] 2.5 mg IH TID PRN #20 neb 07/10/17 Unknown Rx Benzonatate [Tessalon Perle] 100 mg PO TID #12 capsule 07/10/17 Unknown Rx Levofloxacin [Levaquin TAB] 500 mg PO QDAY #10 tablet 07/10/17 Unknown Rx predniSONE [Deltasone] 20 mg PO QDAY #5 tab 07/10/17 Unknown Rx Sulfamethoxazole/Trimethoprim 1 each PO BID #10 tablet 10/06/17 Unknown Rx [Bactrim DS TAB] traMADol [Ultram] 50 mg PO Q6HR PRN #20 tablet 10/06/17 Unknown Rx Allergies Allergy/AdvReac Type Severity Reaction Status Date / Time No Known Allergies Allergy Verified 01/31/17 12:40 ED Review of Systems ROS: Stated complaint: ABDOMINAL PAIN Other details as noted in HPI Constitutional: denies: chills, fever Eyes: denies: eye pain, eye discharge, vision change ENT: denies: ear pain, throat pain Respiratory: denies: cough, shortness of breath, wheezing Cardiovascular: denies: chest pain, palpitations Endocrine: no symptoms reported Gastrointestinal: denies: abdominal pain, nausea, diarrhea Genitourinary: denies: urgency, dysuria, discharge Musculoskeletal: denies: back pain, joint swelling, arthralgia Skin: denies: rash, lesions Neurological: denies: headache, weakness, paresthesias Psychiatric: denies: anxiety, depression Hematological/Lymphatic: denies: easy bleeding, easy bruising ED Past Medical Hx - Past Medical History Previous Medical History?: Yes Hx GERD: Yes Hx Psychiatric Treatment: Yes (anxiety / depression / bipolar / paranoia) - Surgical History Past Surgical History?: Yes Additional Surgical History: D&C - Social History Smoking Status: Former Smoker Substance Use Type: Alcohol - Medications Home Medications: Home Medications Medication Instructions Recorded Confirmed Last Taken Type Multivitamin Tab [Multiple Vitamin 1 each PO QDAY 01/23/17 01/23/17 Unknown History TAB (Theragran)] PARoxetine [Paxil] 20 mg PO DAILY 01/23/17 01/23/17 Unknown History OLANzapine [ZyPREXA] 10 mg PO QHS #10 tablet 01/26/17 Unknown Rx PARoxetine [Paxil] 20 mg PO DAILY #10 tablet 01/26/17 Unknown Rx Olanzapine [OLANZapine] 10 mg PO DAILY #30 tablet 01/31/17 Unknown Rx ALBUTEROL Inhaler [ProAir HFA 2 puff IH QID PRN #1 inhalation 07/10/17 Unknown Rx Inhaler] ALBUTEROL NEB's [Proventil] 2.5 mg IH TID PRN #20 neb 07/10/17 Unknown Rx Benzonatate [Tessalon Perle] 100 mg PO TID #12 capsule 07/10/17 Unknown Rx Levofloxacin [Levaquin TAB] 500 mg PO QDAY #10 tablet 07/10/17 Unknown Rx predniSONE [Deltasone] 20 mg PO QDAY #5 tab 07/10/17 Unknown Rx Sulfamethoxazole/Trimethoprim 1 each PO BID #10 tablet 10/06/17 Unknown Rx [Bactrim DS TAB] traMADol [Ultram] 50 mg PO Q6HR PRN #20 tablet 10/06/17 Unknown Rx ED Physical Exam - General Limitations: No Limitations General appearance: alert, in no apparent distress - Head Head exam: Present: atraumatic, normocephalic - Eye Eye exam: Present: normal appearance - ENT ENT exam: Present: mucous membranes moist - Neck Neck exam: Present: normal inspection - Respiratory Respiratory exam: Present: normal lung sounds bilaterally. Absent: respiratory distress - Cardiovascular Cardiovascular Exam: Present: regular rate, normal rhythm. Absent: systolic murmur, diastolic murmur, rubs, gallop - GI/Abdominal GI/Abdominal exam: Present: soft, normal bowel sounds. Absent: distended, tenderness, guarding, rebound, rigid, mass - Extremities Exam Extremities exam: Present: normal inspection, full ROM - Back Exam Back exam: Present: normal inspection, full ROM - Neurological Exam Neurological exam: Present: alert, oriented X3, normal gait - Psychiatric Psychiatric exam: Present: normal affect, normal mood - Skin Skin exam: Present: warm, dry, intact, normal color. Absent: rash ED Course Vital Signs 10/06/17 14:47 Temperature 98 F Pulse Rate 84 Respiratory 20 Rate Blood Pressure 157/100 O2 Sat by Pulse 97 Oximetry ED Medical Decision Making - Lab Data Result diagrams: 10/06/17 15:52 10/06/17 15:52 Laboratory Last Values WBC 6.3 K/mm3 (4.5-11.0) 10/06/17 15:52 RBC 4.95 M/mm3 (3.65-5.03) 10/06/17 15:52 Hgb 14.0 gm/dl (10.1-14.3) 10/06/17 15:52 Hct 42.5 % (30.3-42.9) 10/06/17 15:52 MCV 86 fl (79-97) 10/06/17 15:52 MCH 28 pg (28-32) 10/06/17 15:52 MCHC 33 % (30-34) 10/06/17 15:52 RDW 17.0 % (13.2-15.2) H 10/06/17 15:52 Plt Count 263 K/mm3 (140-440) 10/06/17 15:52 Lymph % (Auto) 36.0 % (13.4-35.0) H 10/06/17 15:52 Blair % (Auto) 8.4 % (0.0-7.3) H 10/06/17 15:52 Eos % (Auto) 1.7 % (0.0-4.3) 10/06/17 15:52 Baso % (Auto) 0.4 % (0.0-1.8) 10/06/17 15:52 Lymph # 2.3 K/mm3 (1.2-5.4) 10/06/17 15:52 Blair # 0.5 K/mm3 (0.0-0.8) 10/06/17 15:52 Eos # 0.1 K/mm3 (0.0-0.4) 10/06/17 15:52 Baso # 0.0 K/mm3 (0.0-0.1) 10/06/17 15:52 Seg Neutrophils % 53.5 % (40.0-70.0) 10/06/17 15:52 Seg Neutrophils # 3.4 K/mm3 (1.8-7.7) 10/06/17 15:52 Sodium 136 mmol/L (137-145) L 10/06/17 15:52 Potassium 4.2 mmol/L (3.6-5.0) 10/06/17 15:52 Chloride 97.0 mmol/L (98-107) L 10/06/17 15:52 Carbon Dioxide 25 mmol/L (22-30) 10/06/17 15:52 Anion Gap 18 mmol/L 10/06/17 15:52 BUN 9 mg/dL (7-17) 10/06/17 15:52 Creatinine 0.7 mg/dL (0.7-1.2) 10/06/17 15:52 Estimated GFR > 60 ml/min 10/06/17 15:52 BUN/Creatinine Ratio 13 % 10/06/17 15:52 Glucose 96 mg/dL (65-100) 10/06/17 15:52 Calcium 9.2 mg/dL (8.4-10.2) 10/06/17 15:52 Total Bilirubin 0.60 mg/dL (0.1-1.2) 10/06/17 15:52 AST 28 units/L (5-40) 10/06/17 15:52 ALT 20 units/L (7-56) 10/06/17 15:52 Alkaline Phosphatase 86 units/L (35-129) 10/06/17 15:52 Total Protein 8.0 g/dL (6.3-8.2) 10/06/17 15:52 Albumin 4.4 g/dL (3.9-5) 10/06/17 15:52 Albumin/Globulin Ratio 1.2 % 10/06/17 15:52 Urine Color Richelle (Yellow) 10/06/17 15:00 Urine Turbidity Clear (Clear) 10/06/17 15:00 Urine pH 5.0 (5.0-7.0) 10/06/17 15:00 Ur Specific [place] 1.029 (1.003-1.030) 10/06/17 15:00 Urine Protein 30 mg/dl mg/dL (Negative) 10/06/17 15:00 Urine Glucose (UA) Neg mg/dL (Negative) 10/06/17 15:00 Urine Ketones Tr mg/dL (Negative) 10/06/17 15:00 Urine Blood Sm (Negative) 10/06/17 15:00 Urine Nitrite Neg (Negative) 10/06/17 15:00 Ur Reducing Substances Not Reportable 10/06/17 15:00 Urine Bilirubin Neg (Negative) 10/06/17 15:00 Urine Ictotest Not Reportable 10/06/17 15:00 Urine Urobilinogen < 2.0 mg/dL (<2.0) 10/06/17 15:00 Ur Leukocyte Esterase Mod (Negative) 10/06/17 15:00 Urine WBC (Auto) 6.0 /HPF (0.0-6.0) 10/06/17 15:00 Urine RBC (Auto) 7.0 /HPF (0.0-6.0) 10/06/17 15:00 U Epithel Cells (Auto) 10.0 /HPF (0-13.0) 10/06/17 15:00 Urine Mucus 1+ /HPF 10/06/17 15:00 Urine HCG, Qual Negative (Negative) 10/06/17 15:00 - Radiology Data Radiology results: report reviewed, image reviewed FINAL REPORT EXAM: CT ABDOMEN PELVIS W CON HISTORY: rlq pain TECHNIQUE: Dynamic helical CT scan through the abdomen and pelvis during and again after intravenous injection of iodinated contrast. Images are reconstructed in the sagittal and coronal planes. Oral contrast was not given. PRIORS: None. FINDINGS: The lung bases are clear. The liver, gallbladder, pancreas, spleen and adrenal glands appear normal. The kidneys appear normal. There is an IUD in the uterus. There are 2 cysts in the right ovary measuring 4.1 and 3.7 cm respectively. There is a small amount of free pelvic fluid. The left ovary appears grossly normal. The stomach appears grossly within normal limits. There are no abnormally dilated loops of bowel or acute inflammatory changes. A normal-appearing appendix is identified. The abdominal aorta has a normal diameter. The bones and subcutaneous soft tissues are unremarkable for age. There is a small umbilical hernia containing normal appearing fat. IMPRESSION: 1. Two right ovarian cyst measuring 4.1 and 3.7 cm respectively. There is a small amount of free pelvic fluid. Further evaluation with pelvic ultrasound is recommended. 2. IUD in the uterus 3. Small umbilical hernia containing normal appearing fat Transcribed By: NAVDEEP Dictated By: HERB LORENZANA MD Electronically Authenticated By: HERB LORENZANA MD Signed Date/Time: 10/06/17 1830 - Medical Decision Making 47-year-old female present with ovarian cyst ED course: Patient received 1 L of IV fluids and ED and Toradol for pain. CBC, CMP, urinalysis all ordered. Sodium chloride mildly low, uterus is positive for leukocyte esterase. Ultrasound shows ovarian cysts as reported above Discussed all findings with the patient. Discussed the patient treat with antibiotic as well as pain medicine. Discussed the follow-up with [facility] regularly Discussed primary care physician referral as well. Discussed with patient if symptoms worsen to return to ED. Critical care attestation.: If time is entered above; I have spent that time in minutes in the direct care of this critically ill patient, excluding procedure time. ED Disposition Clinical Impression: Cystitis Ovarian cyst Qualifiers: Laterality: right Qualified Code(s): N83.201 - Unspecified ovarian cyst, right side Disposition: DC-01 TO HOME OR SELFCARE Is pt being admited?: No Does the pt Need Aspirin: No Condition: Stable Instructions: Ovarian Cyst (ED), Urinary Tract Infection in Women (ED), Abdominal Pain (ED), Flank Pain (ED) Additional Instructions: Make sure to follow up with the primary care physician as discussed. Take all your medications as you've been prescribed. If you have any worsening symptoms or develop new symptoms please return to ED immediately. Prescriptions: Sulfamethoxazole/Trimethoprim [Bactrim DS TAB] 1 each PO BID #10 tablet traMADol [Ultram] 50 mg PO Q6HR PRN #20 tablet PRN Reason: Pain Referrals: PRIMARY CARE, [Primary Care Provider] - 3-5 Days EMILY MAYO MD [Referring] - 3-5 Days [facility] [Outside] - 3-5 Days [facility] [Outside] - 3-5 Days Forms: Work/School Release Form(ED) Time of Disposition: 18:55
[2017-10-06] MEDS ORDERED: NACL 0.9% 1000 ML 1,000 ML IV ONE (18:30)
--- NOTE | 2017-10-06 18:34 | Cat Scan Report ---
FINAL REPORT EXAM: CT ABDOMEN PELVIS W CON HISTORY: rlq pain TECHNIQUE: Dynamic helical CT scan through the abdomen and pelvis during and again after intravenous injection of iodinated contrast. Images are reconstructed in the sagittal and coronal planes. Oral contrast was not given. PRIORS: None. FINDINGS: The lung bases are clear. The liver, gallbladder, pancreas, spleen and adrenal glands appear normal. The kidneys appear normal. There is an IUD in the uterus. There are 2 cysts in the right ovary measuring 4.1 and 3.7 cm respectively. There is a small amount of free pelvic fluid. The left ovary appears grossly normal. The stomach appears grossly within normal limits. There are no abnormally dilated loops of bowel or acute inflammatory changes. A normal-appearing appendix is identified. The abdominal aorta has a normal diameter. The bones and subcutaneous soft tissues are unremarkable for age. There is a small umbilical hernia containing normal appearing fat. IMPRESSION: 1. Two right ovarian cyst measuring 4.1 and 3.7 cm respectively. There is a small amount of free pelvic fluid. Further evaluation with pelvic ultrasound is recommended. 2. IUD in the uterus 3. Small umbilical hernia containing normal appearing fat
[2017-10-06 20:20] VITALS: BP 150/99
== END 2017-10-06 19:30 | disposition home or self-care (01) ==
LOC: ED 14:41
DX: N30.90 Cystitis, unspecified without hematuria (principal); N83.201 Unspecified ovarian cyst, right side; K21.9 Gastro-esophageal reflux disease without esophagitis; F31.9 Bipolar disorder, unspecified; Z87.891 Personal history of nicotine dependence
CPT/HCPCS: 36415; 74177; 80053; 81001; 81025; 85025; 96361; 96374; 99284; J1885; J7030; Q9967

== ENCOUNTER 2020-05-18 20:43 | Emergency (ER) | payer BC ==
[2020-05-18 22:08] VITALS: BP 147/83
[2020-05-18 22:35] LABS: HCG Qualitative,Urine Negative (Negative)
[2020-05-18 22:39] LABS: Bilirubin,Urine NEG (Negative); Blood,Urine NEG (Negative); Color,Urine Yellow (Yellow); Mucus,Urine FEW /HPF; Protein,Urine <15 mg/dL mg/dL (Negative); Urobilinogen,Urine < 2.0 mg/dL (<2.0); WBC,Urine < 1.0 /HPF (0.0-6.0)
[2020-05-19] MEDS ORDERED: KETOROLAC 30 MG/1 ML INJ IM ONE (01:08)
[2020-05-19] MEDS ORDERED: dexAMETHasone 4 MG/ML VIAL IM ONE (01:08)
--- NOTE | 2020-05-19 01:17 | Emergency Department Report ---
ED Back Pain/Injury HPI - General Chief Complaint: Back Pain/Injury Stated Complaint: LOWER BACK PAIN Time Seen by Provider: 05/19/20 01:07 Source: patient Limitations: No Limitations - History of Present Illness Initial Comments: The patient was evaluated in the emergency department for symptoms described in the history of present illness. He/she was evaluated in the context of the global COVID-19 pandemic, which necessitated consideration that the patient might be at risk for infection with the virus that causes COVID-19. Institutional protocols and algorithms that pertain to the evaluation of patients at risk for COVID-19 are in a state of rapid change based on information released by regulatory bodies including the CDC and federal and state organizations. These policies and algorithms were followed during the patient's care in the emergency department. Please note that these policies, procedures and recommendations changed on a rapid basis. 49-year-old -[place] female comes in complaining of 2 weeks of lower back pain that is worse with cough and bearing down to have a bowel movement. Patient states that pain is better with certain positions as well as pain can be worse with certain positions. Patient states that she took Tylenol extra strength yesterday and today and it did not help with her pain. She does report taking ibuprofen a few days ago of 400 mg and it helps slightly. Patient denies any dysuria no vaginal discharge no possibility of being . She does admit that she works at a [employer] and states that she has not had this problem and is been there for 3 years. Complaint: back pain Onset/Timin -: week(s) Similar Symptoms Previously: No Radiation: none Severity: moderate Severity scale (0 -10): 7 Quality: dull, aching Consistency: constant Improves With: other (Certain position) Worsens With: other (Coughing or bearing down having a bowel movement) Context: unknown Associated Symptoms: denies other symptoms - Related Data Home Medications Medication Instructions Recorded Confirmed Last Taken Multivitamin Tab [Multiple Vitamin 1 each PO QDAY 01/23/17 01/23/17 Unknown TAB (Theragran)] PARoxetine [Paxil] 20 mg PO DAILY 01/23/17 01/23/17 Unknown Previous Rx's Medication Instructions Recorded Last Taken Type OLANzapine [ZyPREXA] 10 mg PO QHS #10 tablet 01/26/17 Unknown Rx PARoxetine [Paxil] 20 mg PO DAILY #10 tablet 01/26/17 Unknown Rx OLANZapine 10 mg PO DAILY #30 tablet 01/31/17 Unknown Rx ALBUTEROL NEB's [Proventil] 2.5 mg IH TID PRN #20 neb 07/10/17 Unknown Rx Albuterol Mdi (or & Nicu Only) 2 puff IH QID PRN #1 inhalation 07/10/17 Unknown Rx [ProAir HFA Inhaler] Benzonatate [Tessalon Perle] 100 mg PO TID #12 capsule 07/10/17 Unknown Rx levoFLOXacin [Levaquin TAB] 500 mg PO QDAY #10 tablet 07/10/17 Unknown Rx predniSONE [Deltasone] 20 mg PO QDAY #5 tab 07/10/17 Unknown Rx Sulfamethoxazole/Trimethoprim 1 each PO BID #10 tablet 10/06/17 Unknown Rx [Bactrim DS TAB] traMADoL [Ultram] 50 mg PO Q6HR PRN #20 tablet 10/06/17 Unknown Rx Baclofen [Lioresal] 10 mg PO TID #15 tab 05/21/18 Unknown Rx Diclofenac Sodium 50 mg PO BID PRN #10 tablet.dr 05/21/18 Unknown Rx Ibuprofen [Motrin 800 MG tab] 800 mg PO Q8HR PRN #30 tablet 05/19/20 Unknown Rx Allergies Allergy/AdvReac Type Severity Reaction Status Date / Time No Known Allergies Allergy Verified 01/31/17 12:40 ED Review of Systems ROS: Stated complaint: LOWER BACK PAIN Other details as noted in HPI Comment: All other systems reviewed and negative ED Past Medical Hx - Past Medical History Previous Medical History?: Yes Hx GERD: Yes Hx Psychiatric Treatment: Yes (anxiety / depression / bipolar / paranoia) Additional medical history: Prolapsed Urinary bladder - Surgical History Past Surgical History?: Yes Additional Surgical History: D&C - Social History Smoking Status: Former Smoker Substance Use Type: None - Medications Home Medications: Home Medications Medication Instructions Recorded Confirmed Last Taken Type Multivitamin Tab [Multiple Vitamin 1 each PO QDAY 01/23/17 01/23/17 Unknown History TAB (Theragran)] PARoxetine [Paxil] 20 mg PO DAILY 01/23/17 01/23/17 Unknown History OLANzapine [ZyPREXA] 10 mg PO QHS #10 tablet 01/26/17 Unknown Rx PARoxetine [Paxil] 20 mg PO DAILY #10 tablet 01/26/17 Unknown Rx OLANZapine 10 mg PO DAILY #30 tablet 01/31/17 Unknown Rx ALBUTEROL NEB's [Proventil] 2.5 mg IH TID PRN #20 neb 07/10/17 Unknown Rx Albuterol Mdi (or & Nicu Only) 2 puff IH QID PRN #1 inhalation 07/10/17 Unknown Rx [ProAir HFA Inhaler] Benzonatate [Tessalon Perle] 100 mg PO TID #12 capsule 07/10/17 Unknown Rx levoFLOXacin [Levaquin TAB] 500 mg PO QDAY #10 tablet 07/10/17 Unknown Rx predniSONE [Deltasone] 20 mg PO QDAY #5 tab 07/10/17 Unknown Rx Sulfamethoxazole/Trimethoprim 1 each PO BID #10 tablet 10/06/17 Unknown Rx [Bactrim DS TAB] traMADoL [Ultram] 50 mg PO Q6HR PRN #20 tablet 10/06/17 Unknown Rx Baclofen [Lioresal] 10 mg PO TID #15 tab 05/21/18 Unknown Rx Diclofenac Sodium 50 mg PO BID PRN #10 tablet.dr 05/21/18 Unknown Rx Ibuprofen [Motrin 800 MG tab] 800 mg PO Q8HR PRN #30 tablet 05/19/20 Unknown Rx ED Physical Exam - General Limitations: No Limitations General appearance: alert, in no apparent distress - Head Head exam: Present: atraumatic, normocephalic - Eye Eye exam: Present: normal appearance - ENT ENT exam: Present: mucous membranes moist - Neck Neck exam: Present: normal inspection, full ROM - Respiratory Respiratory exam: Absent: accessory muscle use - Cardiovascular Cardiovascular Exam: Present: regular rate, normal rhythm. Absent: systolic murmur, diastolic murmur, rubs, gallop - Extremities Exam Extremities exam: Present: full ROM - Back Exam Back exam: Present: full ROM, tenderness (left), muscle spasm. Absent: vertebral tenderness - Neurological Exam Neurological exam: Present: alert, oriented X3 - Psychiatric Psychiatric exam: Present: normal affect, normal mood - Skin Skin exam: Present: warm, dry, intact, normal color. Absent: rash ED Course Vital Signs 05/18/20 22:03 Temperature 98.6 F Pulse Rate 71 Respiratory 18 Rate Blood Pressure 147/83 O2 Sat by Pulse 100 Oximetry ED Medical Decision Making - Medical Decision Making 49-year-old -[place]iss female comes in complaining of 2 weeks of lower back pain that is worse with cough and bearing down to have a bowel movement. Patient states that pain is better with certain positions as well as pain can be worse with certain positions. Patient states that she took Tylenol extra strength yesterday and today and it did not help with her pain. She does report taking ibuprofen a few days ago of 400 mg and it helps slightly. Patient denies any dysuria no vaginal discharge no possibility of being . She does admit that she works at a [employer] and states that she has not had this problem and is been there for 3 years. Patient be given Toradol 30 mg IM dexamethasone 8 mg IM. Urinalysis is negative test is negative. Try ibuprofen 6 to 800 mg every 6-8 hours. Increase your water intake. Follow-up with the primary care provider if symptoms persist or gets worse. Critical care attestation.: If time is entered above; I have spent that time in minutes in the direct care of this critically ill patient, excluding procedure time. ED Disposition Clinical Impression: Acute back pain less than 4 weeks duration Disposition: DC-01 TO HOME OR SELFCARE Is pt being admited?: No Does the pt Need Aspirin: No Condition: Stable Instructions: Acute Back Pain, Adult Additional Instructions: Please try taking ibuprofen to see if this helps. If not please follow-up with a back specialist. Prescriptions: Ibuprofen [Motrin 800 MG tab] 800 mg PO Q8HR PRN #30 tablet PRN Reason: Pain , Severe (7-10) Referrals: ABIEL PLAZA MD [Primary Care Provider] - 3-5 Days Forms: Work/School Release Form(ED)
== END 2020-05-19 01:53 | disposition home or self-care (01) ==
LOC: ED 20:43
DX: M54.5 Low back pain (principal); K21.9 Gastro-esophageal reflux disease without esophagitis; F31.9 Bipolar disorder, unspecified; F22 Delusional disorders; Z79.899 Other long term (current) drug therapy; Z87.891 Personal history of nicotine dependence
CPT/HCPCS: 81001; 81025; 96372; 99283; J1100; J1885

== ENCOUNTER 2020-11-27 19:46 | Emergency (ER) | payer BC ==
[2020-11-27 21:25] VITALS: BP 144/80
--- NOTE | 2020-11-28 03:36 | Emergency Department Report ---
ED Headache HPI - General Chief Complaint: Headache Stated Complaint: HEADACHE/BACK/NECK/SHOULDER PAIN Time Seen by Provider: 11/28/20 03:20 Source: patient, family, police, RN/MD, EMS, translator and interpreter, RN notes reviewed, EMS notes reviewed, care home records, old records, other - History of Present Illness Initial Comments: Patient is a 50-year-old -Citizen Of [place] female with a history of migraine head aches and cervical spine strain. Patient states recurring symptoms for the past 10 years. This exacerbation started 2 days ago without improvement. Pain described as 7/10 aching tingly pain radiates from neck to right hand. There is been no new fall injury or trauma. There is no paralysis no numbness or deformity noted. Timing/Duration: 1 week, other (chronic ) Allergies/Adverse Reactions: Allergies No Known Allergies Allergy (Verified 01/31/17 12:40) Home Medications: Ambulatory Orders Multivitamin Tab [Multiple Vitamin TAB (Theragran)] 1 each PO QDAY 01/23/17 PARoxetine [Paxil] 20 mg PO DAILY 01/23/17 OLANzapine [ZyPREXA] 10 mg PO QHS #10 tablet 01/26/17 PARoxetine [Paxil] 20 mg PO DAILY #10 tablet 01/26/17 OLANZapine 10 mg PO DAILY #30 tablet 01/31/17 ALBUTEROL NEB's [Proventil] 2.5 mg IH TID PRN #20 neb 07/10/17 Albuterol Mdi (or & Nicu Only) [ProAir HFA Inhaler] 2 puff IH QID PRN #1 inha lation 07/10/17 Benzonatate [Tessalon Perle] 100 mg PO TID #12 capsule 07/10/17 levoFLOXacin [Levaquin TAB] 500 mg PO QDAY #10 tablet 07/10/17 predniSONE [Deltasone] 20 mg PO QDAY #5 tab 07/10/17 Sulfamethoxazole/Trimethoprim [Bactrim DS TAB] 1 each PO BID #10 tablet 10/06/17 traMADoL [Ultram] 50 mg PO Q6HR PRN #20 tablet 10/06/17 Baclofen [Lioresal] 10 mg PO TID #15 tab 05/21/18 Diclofenac Sodium 50 mg PO BID PRN #10 tablet. 05/21/18 Ibuprofen [Motrin 800 MG tab] 800 mg PO Q8HR PRN #30 tablet 05/19/[address] [Voltaren Dr] 75 mg PO TID PRN #30 tablet 11/28/20 Menthol/Camphor [[place] [employer] Ointment] 1 applicatio TP Q6H PRN #1 tube 11/28/20 Metaxalone [Skelaxin] 800 mg PO TID #30 tablet 11/28/20 predniSONE [Deltasone] 40 mg PO DAILY 5 Days #10 tablet 11/28/20 ED Review of Systems ROS: Stated complaint: HEADACHE/BACK/NECK/SHOULDER PAIN Other details as noted in HPI Constitutional: denies: chills, fever Eyes: denies: eye pain, eye discharge, vision change ENT: denies: ear pain, throat pain Respiratory: denies: cough, shortness of breath, wheezing Cardiovascular: denies: chest pain, palpitations Endocrine: no symptoms reported Gastrointestinal: denies: abdominal pain, nausea, diarrhea Genitourinary: denies: urgency, dysuria, discharge Musculoskeletal: arthralgia, myalgia Skin: denies: rash, lesions Neurological: denies: headache, weakness, paresthesias, vertigo Psychiatric: denies: anxiety Hematological/Lymphatic: denies: easy bleeding, easy bruising ED Past Medical Hx - Past Medical History Previous Medical History?: Yes Hx GERD: Yes Hx Psychiatric Treatment: Yes (anxiety / depression / bipolar / paranoia) Additional medical history: Prolapsed Urinary bladder - Surgical History Past Surgical History?: Yes Additional Surgical History: D&C - Social History Smoking Status: Former Smoker - Medications Home Medications: Home Medications Medication Instructions Recorded Confirmed Last Taken Type Multivitamin Tab [Multiple Vitamin 1 each PO QDAY 01/23/17 01/23/17 Unknown History TAB (Theragran)] PARoxetine [Paxil] 20 mg PO DAILY 01/23/17 01/23/17 Unknown History OLANzapine [ZyPREXA] 10 mg PO QHS #10 tablet 01/26/17 Unknown Rx PARoxetine [Paxil] 20 mg PO DAILY #10 tablet 01/26/17 Unknown Rx OLANZapine 10 mg PO DAILY #30 tablet 01/31/17 Unknown Rx ALBUTEROL NEB's [Proventil] 2.5 mg IH TID PRN #20 neb 07/10/17 Unknown Rx Albuterol Mdi (or & Nicu Only) 2 puff IH QID PRN #1 inhalation 07/10/17 Unknown Rx [ProAir HFA Inhaler] Benzonatate [Tessalon Perle] 100 mg PO TID #12 capsule 07/10/17 Unknown Rx levoFLOXacin [Levaquin TAB] 500 mg PO QDAY #10 tablet 07/10/17 Unknown Rx predniSONE [Deltasone] 20 mg PO QDAY #5 tab 07/10/17 Unknown Rx Sulfamethoxazole/Trimethoprim 1 each PO BID #10 tablet 10/06/17 Unknown Rx [Bactrim DS TAB] traMADoL [Ultram] 50 mg PO Q6HR PRN #20 tablet 10/06/17 Unknown Rx Baclofen [Lioresal] 10 mg PO TID #15 tab 05/21/18 Unknown Rx Diclofenac Sodium 50 mg PO BID PRN #10 tablet.dr 05/21/18 Unknown Rx Ibuprofen [Motrin 800 MG tab] 800 mg PO Q8HR PRN #30 tablet 05/19/[address] [Shaina Contreras] 75 mg PO TID PRN #30 tablet 11/28/20 Unknown Rx Menthol/Camphor [[place] [employer] 1 applicatio TP Q6H PRN #1 tube 11/28/20 Unknown Rx Ointment] Metaxalone [Skelaxin] 800 mg PO TID #30 tablet 11/28/20 Unknown Rx predniSONE [Deltasone] 40 mg PO DAILY 5 Days #10 tablet 11/28/20 Unknown Rx ED Physical Exam - General Limitations: No Limitations General appearance: alert, in no apparent distress - Head Head exam: Present: atraumatic, normocephalic - Eye Eye exam: Present: normal appearance, PERRL, EOMI. Absent: conjunctival injection, nystagmus Pupils: Present: normal accommodation - ENT ENT exam: Present: mucous membranes moist - Neck Neck exam: Present: normal inspection, tenderness, full ROM. Absent: lymphadenopathy - Respiratory Respiratory exam: Present: normal lung sounds bilaterally. Absent: respiratory distress, wheezes, stridor, chest wall tenderness - Cardiovascular Cardiovascular Exam: Present: regular rate, normal rhythm, normal heart sounds. Absent: systolic murmur, diastolic murmur, rubs, gallop - GI/Abdominal GI/Abdominal exam: Present: soft, normal bowel sounds. Absent: distended, tenderness, bruit, hernia - Rectal Rectal exam: Present: deferred - Extremities Exam Extremities exam: Present: normal inspection, full ROM, normal capillary refill - Back Exam Back exam: Present: normal inspection, full ROM. Absent: tenderness, CVA tenderness (R), CVA tenderness (L), paraspinal tenderness - Neurological Exam Neurological exam: Present: alert, oriented X3, CN II-XII intact, normal gait, reflexes normal. Absent: motor sensory deficit - Expanded Neurological Exam Expanded Patient oriented to: Present: person, place, time Speech: Present: fluid speech Cranial nerves: EOM's Intact: Normal, Gag Reflex: Normal Cerebellar function: Finger to Nose: Normal, [place]: Normal Motor strength exam: RUE: 5, LUE: 5, RLE: 5, LLE: 5 Best Eye Response (Natalya): (4) open spontaneously Best Motor Response ([place]): (6) obeys commands Best Verbal Response (Natalya): (5) oriented Natalya Total: 15 - Psychiatric Psychiatric exam: Present: normal affect, normal mood - Skin Skin exam: Present: warm, dry, intact, normal color. Absent: rash ED Course Vital Signs 11/27/20 21:18 Temperature 98.9 F Pulse Rate 76 Respiratory 20 Rate Blood Pressure 144/80 O2 Sat by Pulse 98 Oximetry - Reevaluation(s) Reevaluation #1: ketorlac, decadron IM , pain improved 11/28/20 04:11 ED Medical Decision Making - Medical Decision Making This is acute on chronic neck pain with headache. Plan DC to home with prescriptions. Moist heat therapy neck exercises, follow-up with orthopedics in 2 to 3 days. Patient verbalized agreement and understanding with discharge plan. Patient DC'd home in stable condition at this time. Critical care attestation.: If time is entered above; I have spent that time in minutes in the direct care of this critically ill patient, excluding procedure time. ED Disposition Clinical Impression: Cervical muscle strain Qualifiers: Encounter type: initial encounter Qualified Code(s): S16.1XXA - Strain of muscle, fascia and tendon at neck level, initial encounter Headache Qualifiers: Headache type: tension-type Headache chronicity pattern: chronic headache Intractability: not intractable Qualified Code(s): G44.229 - Chronic tension- type headache, not intractable Disposition: DC-01 TO HOME OR SELFCARE Is pt being admited?: No Does the pt Need Aspirin: No Condition: Stable Instructions: Cervical Strain and Sprain Rehab-SportsMed Additional Instructions: Take medications as prescribed, use moist heat therapy to neck, neck exercises, follow-up with orthopedics in 2 to 3 days. Return to emergency department should symptoms worsen. Prescriptions: predniSONE [Deltasone] 40 mg PO DAILY 5 Days #10 tablet Metaxalone [Skelaxin] 800 mg PO TID #30 tablet Menthol/Camphor [[place] [employer] Ointment] 1 applicatio TP Q6H PRN #1 tube PRN Reason: pain Diclofenac Dr [Voltaren Dr] 75 mg PO TID PRN #30 tablet PRN Reason: pain Referrals: RAVINDRA LOUIS MD [Staff Physician] - 3-5 Days Forms: Work/School Release Form(ED) Time of Disposition: 04:22
[2020-11-28] MEDS ORDERED: dexAMETHasone 20 MG/5 ML VIAL IM ONE (04:00)
[2020-11-28] MEDS ORDERED: KETOROLAC 30 MG/1 ML INJ IM ONE (04:01)
== END 2020-11-28 04:30 | disposition home or self-care (01) ==
LOC: ED 19:46
DX: S16.1XXA Strain of muscle, fascia and tendon at neck level, initial encounter (principal); R51.9 Headache, unspecified; K21.9 Gastro-esophageal reflux disease without esophagitis; F41.9 Anxiety disorder, unspecified; Z98.890 Other specified postprocedural states; Z79.1 Long term (current) use of non-steroidal anti-inflammatories (NSAID); Z79.899 Other long term (current) drug therapy; X58.XXXA Exposure to other specified factors, initial encounter; Y93.89 Activity, other specified; Y92.89 Other specified places as the place of occurrence of the external cause; Y99.8 Other external cause status
CPT/HCPCS: 96372; 99282; J1100; J1885

== ENCOUNTER 2021-10-19 01:08 | Emergency (ER) | payer BC ==
--- NOTE | 2021-10-19 07:15 | Emergency Department Report ---
HPI - General Chief Complaint: Psych Time Seen by Provider: 10/19/21 07:04 - HPI HPI: [facility] Patient is a 51-year-old female present with a chief complaint of suicidal homicidal ideation. The patient states "I have been feeling depressed." Patient states she has been trying and angry to the point where she has homicidal ideation. Patient denies having any specific person she is tolerating. Patient states lately "I just do not want to wake up." Patient denies any attempts at harming herself or having an active plan ED Past Medical Hx - Past Medical History Hx GERD: Yes Hx Psychiatric Treatment: Yes (anxiety / depression / bipolar / paranoia) Additional medical history: Prolapsed Urinary bladder - Surgical History Additional Surgical History: D&C - Family History Family history: no significant - Social History Smoking Status: Current Every Day Smoker Substance Use Type: Alcohol, Cocaine, Marijuana, Other (Ecstasy) - Medications Home Medications: Home Medications Medication Instructions Recorded Confirmed Last Taken Type Multivitamin Tab [Multiple Vitamin 1 each PO QDAY 01/23/17 01/23/17 Unknown History TAB (Theragran)] PARoxetine [Paxil] 20 mg PO DAILY #10 tablet 01/26/17 Unknown Rx OLANZapine 10 mg PO DAILY #30 tablet 01/31/17 Unknown Rx ALBUTEROL NEB's [Proventil] 2.5 mg IH TID PRN #20 neb 07/10/17 Unknown Rx Albuterol Mdi (or & Nicu Only) 2 puff IH QID PRN #1 inhalation 07/10/17 Unknown Rx [ProAir HFA Inhaler] Benzonatate [Tessalon Perle] 100 mg PO TID #12 capsule 07/10/17 Unknown Rx levoFLOXacin [Levaquin TAB] 500 mg PO QDAY #10 tablet 07/10/17 Unknown Rx predniSONE [Deltasone] 20 mg PO QDAY #5 tab 07/10/17 Unknown Rx Sulfamethoxazole/Trimethoprim 1 each PO BID #10 tablet 10/06/17 Unknown Rx [Bactrim DS TAB] traMADoL [Ultram] 50 mg PO Q6HR PRN #20 tablet 10/06/17 Unknown Rx Baclofen [Lioresal] 10 mg PO TID #15 tab 05/21/18 Unknown Rx Diclofenac Sodium 50 mg PO BID PRN #10 11/23/18 Unknown Rx Ibuprofen [Motrin 800 MG tab] 800 mg PO Q8HR PRN #30 tablet 05/19/[address] [Voltaren Dr] 75 mg PO TID PRN #30 tablet 11/28/20 Unknown Rx Menthol/Camphor [[place] 1 applicatio TP Q6H PRN #1 tube 11/28/20 Unknown Rx Ointment] Metaxalone [Skelaxin] 800 mg PO TID #30 tablet 11/28/20 Unknown Rx predniSONE [Deltasone] 40 mg PO DAILY 5 Days #10 tablet 11/28/20 Unknown Rx OLANzapine [ZyPREXA] 10 mg PO QHS #10 tablet 10/19/21 Unknown Rx PARoxetine [Paxil] 20 mg PO DAILY #30 10/19/21 Unknown Rx lamoTRIgine [LaMICtal] 25 mg PO BID #60 tab 10/19/21 Unknown Rx ED Review of Systems ROS: Stated complaint: MH Other details as noted in HPI Constitutional: no symptoms reported Eyes: denies: eye pain ENT: denies: throat pain Respiratory: no symptoms reported Cardiovascular: denies: chest pain Endocrine: no symptoms reported Gastrointestinal: denies: abdominal pain Genitourinary: denies: dysuria Musculoskeletal: denies: back pain Psychiatric: depression, homicidal thoughts, suicidal thoughts Physical Exam - Physical Exam Vital Signs: Vital Signs 10/19/21 06:31 Temperature 97.9 F Pulse Rate 89 Respiratory 16 Rate Blood Pressure 154/99 O2 Sat by Pulse 99 Oximetry Physical Exam: GENERAL: The patient is well-developed well-nourished female sitting in chair not appearing to be in acute distress. [] HEENT: Normocephalic. Atraumatic. Extraocular motions are intact. Patient has moist mucous membranes. NECK: Supple. Trachea midline CHEST/LUNGS: Clear to auscultation. There is no respiratory distress noted. HEART/CARDIOVASCULAR: Regular. There is no tachycardia. There is no gallop rub or murmur. ABDOMEN: Abdomen is soft, nontender. Patient has normal bowel sounds. There is no abdominal distention. SKIN: There is no rash. There is no edema. There is no diaphoresis. NEURO: The patient is awake, alert, and oriented. The patient is cooperative. The patient has no focal neurologic deficits. The patient has normal speech. GCS 15 MUSCULOSKELETAL: There is no evidence of acute injury. ED Course Vital Signs 10/19/21 06:31 Temperature 97.9 F Pulse Rate 89 Respiratory 16 Rate Blood Pressure 154/99 O2 Sat by Pulse 99 Oximetry ED Medical Decision Making - Lab Data Result diagrams: 10/19/21 07:03 10/19/21 07:03 Laboratory Tests 10/19/21 10/19/21 10/19/21 07:03 07:03 07:03 WBC RBC Hgb Hct MCV MCH MCHC RDW Plt Count Lymph % (Auto) Add Manual Diff Total Counted Seg Neutrophils % Seg Neuts % (Manual) Band Neutrophils % Lymphocytes % (Manual) Reactive Lymphs % (Man) Monocytes % (Manual) Eosinophils % (Manual) Basophils % (Manual) Metamyelocytes % Myelocytes % Promyelocytes % Blast Cells % Nucleated RBC % Seg Neutrophils # Man Band Neutrophils # Lymphocytes # (Manual) Abs React Lymphs (Man) Monocytes # (Manual) Eosinophils # (Manual) Basophils # (Manual) Metamyelocytes # Myelocytes # Promyelocytes # Blast Cells # WBC Morphology Hypersegmented Neuts Hyposegmented Neuts Hypogranular Neuts Smudge Cells Toxic Granulation Toxic Vacuolation Dohle Bodies Pelger-Huet Anomaly Too Rods Platelet Estimate Clumped Platelets Plt Clumps, EDTA Large Platelets Giant Platelets Platelet Satelliting Plt Morphology Comment RBC Morphology Dimorphic RBCs Polychromasia Hypochromasia Poikilocytosis Anisocytosis Microcytosis Macrocytosis Spherocytes Pappenheimer Bodies Sickle Cells Target Cells Tear Drop Cells Ovalocytes Helmet Cells [place] Bodies [place] Rings [place] Cells Bite Cells Crenated Cell Elliptocytes Acanthocytes (Spur) Rouleaux Hemoglobin C Crystals Schistocytes Malaria parasites Erasto Bodies Hem Pathologist Commnt Sodium 139 Potassium 4.4 Chloride 101.2 Carbon Dioxide 25 Anion Gap 17 BUN 13 Creatinine 0.8 Estimated GFR > 60 BUN/Creatinine Ratio 16 Glucose 85 Calcium 9.6 Salicylates < 0.3 L Acetaminophen 6.6 L Plasma/Serum Alcohol 10/19/21 10/19/21 07:03 07:03 WBC 5.2 RBC 4.71 Hgb 13.4 Hct 40.9 MCV 87 MCH 28 MCHC 33 RDW 14.5 Plt Count 283 Lymph % (Auto) Gimp Buttonhole Machine Operator Add Manual Diff Complete Total Counted 100 Seg Neutrophils % Gimp Buttonhole Machine Operator Seg Neuts % (Manual) 36.0 L Band Neutrophils % 0 Lymphocytes % (Manual) 57.0 H Reactive Lymphs % (Man) 0 Monocytes % (Manual) 5.0 Eosinophils % (Manual) 2.0 Basophils % (Manual) 0 Metamyelocytes % 0 Myelocytes % 0 Promyelocytes % 0 Blast Cells % 0 Nucleated RBC % Not Reportable Seg Neutrophils # Man 1.9 Band Neutrophils # 0.0 Lymphocytes # (Manual) 3.0 Abs React Lymphs (Man) 0.0 Monocytes # (Manual) 0.3 Eosinophils # (Manual) 0.1 Basophils # (Manual) 0.0 Metamyelocytes # 0.0 Myelocytes # 0.0 Promyelocytes # 0.0 Blast Cells # 0.0 WBC Morphology Not Reportable Hypersegmented Neuts Not Reportable Hyposegmented Neuts Not Reportable Hypogranular Neuts Not Reportable Smudge Cells Not Reportable Toxic Granulation Not Reportable Toxic Vacuolation Not Reportable Dohle Bodies Not Reportable Pelger-Huet Anomaly Not Reportable Too Rods Not Reportable Platelet Estimate Consistent w auto Clumped Platelets Not Reportable Plt Clumps, EDTA Not Reportable Large Platelets Not Reportable Giant Platelets Not Reportable Platelet Satelliting Not Reportable Plt Morphology Comment Not Reportable RBC Morphology Normal Dimorphic RBCs Not Reportable Polychromasia Not Reportable Hypochromasia Not Reportable Poikilocytosis Not Reportable Anisocytosis Not Reportable Microcytosis Not Reportable Macrocytosis Not Reportable Spherocytes Not Reportable Pappenheimer Bodies Not Reportable Sickle Cells Not Reportable Target Cells Not Reportable Tear Drop Cells Not Reportable Ovalocytes Not Reportable Helmet Cells Not Reportable [place] Bodies Not Reportable [place] Rings Not Reportable [place] Cells Not Reportable Bite Cells Not Reportable Crenated Cell Not Reportable Elliptocytes Not Reportable Acanthocytes (Spur) Not Reportable Rouleaux Not Reportable Hemoglobin C Crystals Not Reportable Schistocytes Not Reportable Malaria parasites Not Reportable Erasto Bodies Not Reportable Hem Pathologist Commnt No Sodium Potassium Chloride Carbon Dioxide Anion Gap BUN Creatinine Estimated GFR BUN/Creatinine Ratio Glucose Calcium Salicylates Acetaminophen Plasma/Serum Alcohol 0.05 - Differential Diagnosis Suicidal ideation, homicidal ideation, depression Critical care attestation.: If time is entered above; I have spent that time in minutes in the direct care of this critically ill patient, excluding procedure time. ED Disposition Clinical Impression: Suicidal thoughts, Homicidal ideation, Depression, Polysubstance abuse Disposition: 01 HOME / SELF CARE / HOMELESS Is pt being admited?: No Does the pt Need Aspirin: No Condition: Stable Additional Instructions: OUTPATIENT MENTAL HEALTH RESOURCES [facility], [facility] Rhina Melton MD: [address] [place] [address] [place] [address] [facility]: [facility] [facility] [address] [place] [address] [place] [address] [phone] [facility]: [facility] Healthcare: [address] [facility] [place] [address] [facility] [address] [facility]: Kermit Pyle MD: [id number] [facility] [address] [facility] [id number] [facility]: [address] [place], [place] [id number] [phone] [place] CRISIS AND ACCESS LINE: Prescriptions: lamoTRIgine [LaMICtal] 25 mg PO BID #60 tab PARoxetine [Paxil] 20 mg PO DAILY #30 OLANzapine [ZyPREXA] 10 mg PO QHS #10 tablet Referrals: KARSTEN COOK MD [Primary Care Provider] - 3-5 Days Time of Disposition: 11:33
[2021-10-19 07:35] LABS: Hematocrit 40.9 % (30.3-42.9); Hemoglobin 13.4 gm/dl (10.1-14.3); Mean Corpuscular HGB Conc 33 % (30-34); Mean Corpuscular Volume 87 fl (79-97); Platelet Count 283 K/mm3 (140-440); Red Blood Count 4.71 M/mm3 (3.65-5.03); Red Cell Distribution Width 14.5 % (13.2-15.2)
[2021-10-19 07:42] LABS: BUN/Creatinine Ratio 16; Blood Urea Nitrogen 13 mg/dL (7-17); Calcium 9.6 mg/dL (8.4-10.2); Hemolysis Index 5
[2021-10-19 09:06] LABS: Basophils % (Manual) 0 % (0.0-1.8); Platelet Estimate Consistent w Auto; RBC Morphology Normal; Total Cells Counted 100
--- NOTE | 2021-10-19 10:26 | Consultation ---
History of Present Illness - Reason for Consult Consult date: 10/19/21 Reason for consult: depression - History of Present Psychiatric Illness The patient was seen today. She says she has been feeling depressed, tired, and crying a lot. The patient says she's been off her medications. She says she takes paxil, lamictal and zyprexa for Bipolar Disorder. The patient says she lives with her son. The patient verbalizes cocaine use. She says "I really don't do it, but I just wanted to try something." She denies SI/HI. The patient says "no, I don't feel like that. Just feel depressed. I really need my medication." The patient says she didn't keep her follow up appointment and ran out of meds a few weeks ago. She denies hallucinations of any kind. PAST PSYCHIATRIC HISTORY: Diagnoses: Bipolar Suicide attempts or Self-harm behavior: Denies Prior psychiatric hospitalizations: Yes Substance Abuse history: Cocaine Previous psychiatric medications tried: paxil, lamictal, zyprexa Outpatient treatment: yes, but denies PAST MEDICAL HISTORY: None reported Family Psychiatric History: None reported or documented SOCIAL HISTORY Marital Status: Single Living Arrangements: with son Employment Status: Employed Access to guns/weapons: Denies Education: History of Abuse:Denies Legal History: Denies REVIEW OF SYSTEMS Constitutional: Negative for weight loss ENT: Negative for stridor Respiratory: Negative for cough or hemoptysis All other systems reviewed and are negative MENTAL STATUS EXAMINATION General Appearance and Behavior: Age appropriate, good hygiene, wearing appropriate clothes. calm, cooperative Cooperation: Cooperative Psychomotor Behavior: Psychomotor normal Mood: Depressed Affect and affective range: congruent with stated mood Thought Process: goal directed Thought Content: none Speech: Normal tone and pace Suicidal Ideation: Denies Homicidal Ideation: Denies Hallucinations: Denies Delusions: None elicited Impulse Control: Limited Insight and Judgment: Limited insight and fair judgment Memory: Limited Attention: attentive Orientation: a/o x 3 Assessment (1) Bipolar Disorder (2) Cocaine Use Disorder Treatment Plan Give first dose of meds prior to discharge Paxil 20mg po daily Olanzapine 10mg po daily Lamictal 25mg po BID Medical: per primary Disposition: Do not Recommend acute psychiatric inpatient treatment. The patient understands that if SI/HI arise she is to seek immediate assistance The meat specialist to give the patient all necessary resources including drug rehab The patient to abstain from all illicit drug use The patient to follow up in 7 to 14 days with outpatient psych Will sign off. Thanks Case staffed with Dr. Garduno Medications and Allergies Allergies Allergy/AdvReac Type Severity Reaction Status Date / Time No Known Allergies Allergy Verified 01/31/17 12:40 Home Medications Medication Instructions Recorded Confirmed Last Taken Type Multivitamin Tab [Multiple Vitamin 1 each PO QDAY 01/23/17 01/23/17 Unknown History TAB (Theragran)] PARoxetine [Paxil] 20 mg PO DAILY #10 tablet 01/26/17 Unknown Rx OLANZapine 10 mg PO DAILY #30 tablet 01/31/17 Unknown Rx ALBUTEROL NEB's [Proventil] 2.5 mg IH TID PRN #20 neb 07/10/17 Unknown Rx Albuterol Mdi (or & Nicu Only) 2 puff IH QID PRN #1 inhalation 07/10/17 Unknown Rx [ProAir HFA Inhaler] Benzonatate [Tessalon Perle] 100 mg PO TID #12 capsule 07/10/17 Unknown Rx levoFLOXacin [Levaquin TAB] 500 mg PO QDAY #10 tablet 07/10/17 Unknown Rx predniSONE [Deltasone] 20 mg PO QDAY #5 tab 07/10/17 Unknown Rx Sulfamethoxazole/Trimethoprim 1 each PO BID #10 tablet 10/06/17 Unknown Rx [Bactrim DS TAB] traMADoL [Ultram] 50 mg PO Q6HR PRN #20 tablet 10/06/17 Unknown Rx Baclofen [Lioresal] 10 mg PO TID #15 tab 05/21/18 Unknown Rx Diclofenac Sodium 50 mg PO BID PRN #10 tablet. 05/21/18 Unknown Rx Ibuprofen [Motrin 800 MG tab] 800 mg PO Q8HR PRN #30 tablet 05/19/[address] [Shaina Conrteras] 75 mg PO TID PRN #30 tablet 11/28/20 Unknown Rx Menthol/Camphor [[place] 1 applicatio TP Q6H PRN #1 tube 11/28/20 Unknown Rx Ointment] Metaxalone [Skelaxin] 800 mg PO TID #30 tablet 11/28/20 Unknown Rx predniSONE [Deltasone] 40 mg PO DAILY 5 Days #10 tablet 11/28/20 Unknown Rx OLANzapine [ZyPREXA] 10 mg PO QHS #10 tablet 10/19/21 Unknown Rx PARoxetine [Paxil] 20 mg PO DAILY #30 10/19/21 Unknown Rx lamoTRIgine [LaMICtal] 25 mg PO BID #60 tab 10/19/21 Unknown Rx Mental Status Exam - Vital signs Last Vital Signs Temp 97.9 F 10/19/21 06:31 Pulse 89 10/19/21 06:31 Resp 16 10/19/21 06:31 BP 154/99 10/19/21 06:31 Pulse Ox 99 10/19/21 06:31 Results Result Diagrams: 10/19/21 07:03 10/19/21 07:03 Abnormal lab results 10/19/21 10/19/21 10/19/21 Range/Units 07:03 07:03 07:03 Seg Neuts % (Manual) 36.0 L (40.0-70.0) % Lymphocytes % (Manual) 57.0 H (13.4-35.0) % Salicylates < 0.3 L (2.8-20.0) mg/dL Acetaminophen 6.6 L (10.0-30.0) ug/mL All other labs normal.
[2021-10-19] MEDS ORDERED: lamoTRIgine 25 MG TAB PO SCH (11:00)
[2021-10-19] MEDS ORDERED: PARoxetine 20 MG TAB PO SCH (11:00)
[2021-10-19 12:04] VITALS: BP 140/90
== END 2021-10-19 12:04 | disposition home or self-care (01) ==
LOC: ED 01:08
DX: R45.851 Suicidal ideations (principal); R45.850 Homicidal ideations; F32.A Depression, unspecified; F19.10 Other psychoactive substance abuse, uncomplicated; F17.200 Nicotine dependence, unspecified, uncomplicated; F10.20 Alcohol dependence, uncomplicated; F12.90 Cannabis use, unspecified, uncomplicated
CPT/HCPCS: 36415; 80048; 80320; 85007; 85025; 99283; G0480